=== PATIENT | female | born 2000 | race Caucasian/White ===

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

== ENCOUNTER 2022-10-15 09:52 | Outpatient (REF) | payer MEDICAID, SELFPAY ==
[2022-10-16 03:24] LABS: CT PCR NOT DETECTED (Not Detect.)
[2022-10-16 03:25] LABS: NG PCR NOT DETECTED (Not Detect.)
[2022-10-16 11:35] LABS: BV Int Neg Control Negative (Negative); BV Int Pos Control Positive (Positive)
== END 2022-10-15 09:53 | disposition home or self-care (01) ==
LOC: HO.LNP 09:52
PROVIDERS: PCP Pediatrics; Visit Provider Advanced Practice Midwife
DX: N92.1 Excessive and frequent menstruation with irregular cycle (principal); E66.01 Morbid (severe) obesity due to excess calories; Z68.42 Body mass index [BMI] 45.0-49.9, adult; L68.0 Hirsutism; L65.9 Nonscarring hair loss, unspecified; N63.10 Unspecified lump in the right breast, unspecified quadrant; N63.20 Unspecified lump in the left breast, unspecified quadrant; Z97.5 Presence of (intrauterine) contraceptive device
CPT/HCPCS: 0353U; 81025; 87480; 87510; 87660

== ENCOUNTER 2022-10-23 07:17 | Outpatient (REF) | payer MEDICAID, SELFPAY ==
[2022-10-23 07:59] LABS: Hematocrit 41.6 % (37.0-47.0); Hemoglobin 13.2 g/dl (12.0-16.0); Mean Corpuscular HGB Conc 31.7 g/dl (31.0-35.0); Mean Corpuscular Hemoglobin 27.5 pg (27.0-33.0); Mean Corpuscular Volume 86.7 fL (80.0-98.0); Mean Platelet Volume 8.9 fL (9.4-12.3); Platelet Count 334 X10*3/uL (160-400); Red Cell Distribution Width 13.7 % (11.0-16.0); White Blood Count 7.9 X10*3/uL (4.8-10.8)
[2022-10-23 08:23] LABS: Estimated Average Glucose 114 mg/dL; Hemoglobin A1c % 5.6 %
[2022-10-23 08:50] LABS: Cholesterol 112 mg/dL; Glucose Random 113 mg/dL (60-115); HDL Cholesterol 38 mg/dL; LDL Cholesterol Calculated 60 mg/dl; Triglycerides 70 mg/dL
[2022-10-25 04:14] LABS: Syphilis Screen Nonreactive (Nonreactive)
[2022-10-25 04:24] LABS: HBsAGNum1 0.31 S/CO (0.00-0.99); HIV AB/AG Nonreactive (Nonreactive); HIV Num 1 0.06 S/CO (0.00-0.99); Hepatitis B Surface Antigen Negative (Negative); ~HepC Num1 0.14 S/CO (0.00-0.79); ~Hepatitis C Antibody Nonreactive (Nonreactive)
== END 2022-10-23 07:18 | disposition home or self-care (01) ==
LOC: HO.LAB 07:17
PROVIDERS: Visit Provider Advanced Practice Midwife
DX: N92.1 Excessive and frequent menstruation with irregular cycle (principal); Z11.4 Encounter for screening for human immunodeficiency virus [HIV]; L68.0 Hirsutism; L65.9 Nonscarring hair loss, unspecified; E66.01 Morbid (severe) obesity due to excess calories; Z68.42 Body mass index [BMI] 45.0-49.9, adult; Z97.5 Presence of (intrauterine) contraceptive device
CPT/HCPCS: 36415; 80061; 82947; 83036; 84443; 85027; 86780; 86803; 87340; 87389

== ENCOUNTER 2022-10-25 13:13 | Outpatient (REF) | payer MEDICAID, SELFPAY ==
--- NOTE | ~2022-10-25 | US_ITS ---
EXAMINATION: US DIAGNOSTIC ULTRASOUND BREAST, RIGHT US DIAGNOSTIC ULTRASOUND BREAST, LEFT CLINICAL INFORMATION: 22-year-old with palpable tender mass noted by patient outer left breast for 4-5 months. Patient perceives size possibly increased since 4-5 months ago. On clinical exam, palpable mass also noted on contralateral upper right breast. No prior breast imaging. COMPARISON: None (current study represents initial baseline exam). TECHNIQUE: Ultrasound of both breasts is targeted to the areas of palpable concern. Grayscale imaging and color Doppler are performed without and with harmonics. FINDINGS: Right: There is a macrolobulated hypoechoic the circumscribed mass 12:00 position 9 cm from nipple measuring approximately 1.8 x 1.2 x 1.4 cm. There is scattered internal color flow. Finding most likely represents a fibroadenoma. Left: There is a similar-appearing macrolobulated hypoechoic circumscribed mass at site of clinical concern 4:00 position 10 cm from nipple. The overall dimensions are 4.3 x 1.4 cm. There is scattered internal color flow. It is difficult to confirm that this represents a single lesion or perhaps 2 adjacent lesions. Turning of patient failed to reveal sliding movement between the macrolobulated foci therefore favoring a single lesion of 4.3 cm in greatest dimension. This most likely represents a fibroadenoma. Results are discussed with the patient at time of visit. Management options are discussed with patient. The right-sided lesion could be followed with ultrasound in 6 months. Given the dominant lesion on left of 4.3 cm, surgical consult is recommended. Results and recommendation called to office (AVRIL Andujar) for Maxine Moyer CNM on 10/25/2022. US/US breast LT limited IMPRESSION: Left: Probable fibroadenoma 4:00 position measuring 4.3 cm. Right: Probable fibroadenoma 12:00 position measuring 1.8 cm. ASSESSMENT: BI-RADS 4: Suspicious (subcategory 4A: Low suspicion for malignancy) RECOMMENDATION: Surgical consult This patient's information was entered into a reminder system with a target due date for their next mammogram.
== END 2022-10-25 13:14 | disposition home or self-care (01) ==
LOC: HO.MAMMO 13:13
PROVIDERS: Visit Provider Advanced Practice Midwife
DX: N63.12 Unspecified lump in the right breast, upper inner quadrant (principal); N63.23 Unspecified lump in the left breast, lower outer quadrant
CPT/HCPCS: 76642

== ENCOUNTER → 2022-11-02 14:47 | Outpatient (BNVA) | payer MEDICAID, SELFPAY | PROVIDERS: Referring Provider Advanced Practice Midwife; Visit Provider Surgery | DX: N63.10 Unspecified lump in the right breast, unspecified quadrant (principal); N63.20 Unspecified lump in the left breast, unspecified quadrant | CPT/HCPCS: 99202 ==

== ENCOUNTER 2022-11-17 05:52 | Day surgery (SDC) | payer MEDICAID, SELFPAY ==
[2022-11-11 10:26] VITALS: BMI 44.4
--- NOTE | 2022-11-16 20:00 | MHC.SHP ---
Pre-Procedural Eval Section A Date of Service: 11/17/22 The patient is an INPATIENT: No Changes since office visit: No Cold of Flu in the past 2 weeks, No New Medical Problems, No Changes in Medication and No Patient answered all questions Section B Chief Complaint: Unspecified lump in the right breast, unspecified Allergies: Allergies Allergy/AdvReac Type Severity Reaction Status Date / Time Penicillins [PENICILLINS] Allergy Severe Anaphylaxis Verified 11/11/22 10:19 shellfish derived Allergy Severe Anaphylaxis Verified 11/11/22 10:19 Plan I have reviewed the history and physical and performed a pertinent physical examination on my patient. No changes have occurred unless specified. Time Spent With Patient Time: Total time managing care of this patient today ____ minutes.
[2022-11-17 06:20] VITALS: BP 118/78; PULSE 104; RESP 16; TEMP 36.4; O2SAT 97
[2022-11-17 06:32] LABS: UPreg QC Valid YES; Urine Pregnancy NEGATIVE (NEGATIVE)
[2022-11-17] MEDS: Lactated Ringers 1,000 ML 50 ML IVCONT (06:42)
--- NOTE | 2022-11-17 07:27 | HO.ANESPROP2 ---
[facility] Active Problems Active Problems: All Active Problems (Updated 11/02/22 @ 15:12 by Jose Ortiz MD) Breakthrough bleeding on Nexplanon (Acute) Morbid obesity with BMI of 45.0-49.9, adult (Acute) Well woman exam with routine gynecological exam (Acute) Screen for sexually transmitted diseases (Acute) Hirsutism (Acute) Hair thinning (Acute) control counseling (Acute) Bilateral breast lump (Acute) Past Medical History Medical History Hirsutism Family History Family History Father Hypertension Surgical History Surgical History Hx of knee surgery History of Problems with Anesthesia: No Social History Social History Alcohol intake: never Patient Tobacco Use Status: Never used Tobacco Meds Allergies Allergy/AdvReac Type Severity Reaction Status Date / Time Penicillins [PENICILLINS] Allergy Severe Anaphylaxis Verified 11/11/22 10:19 shellfish derived Allergy Severe Anaphylaxis Verified 11/11/22 10:19 Active Medications: Current Medications Lactated Ringer's (Lr) 1,000 mls @ 50 mls/hr IVCONT .Q20H CANDIDO Last Admin: 11/17/22 06:42 Dose: 50 mls/hr Exam Exam Date and Time: November 17, 2022 0727 Height,Weight and Vital Signs: Height 5 ft 9 in Weight 136.645 kg Last Vital Signs Temp 97.6 F 11/17/22 06:20 Pulse 104 H 11/17/22 06:20 Resp 16 11/17/22 06:20 BP 118/78 11/17/22 06:20 Pulse Ox 97 11/17/22 06:20 O2 Del Method Room Air 11/17/22 06:20 Pertinent Lab Results Pertinent Lab Results: Laboratory Tests 11/17/22 06:14 Urine Test NEGATIVE Airway Mallampati Class: II TM Dist: >3cm Neck ROM: Full Loose/Missing/Broken Teeth: No Heart: RRR Lungs: C Assessment and Plan Assessment Anesthesia Assessment: Anesthesia Plan Discussed and Chart Reviewed Final Anesthetic Review History of Problems with Anesthesia: No NPO: Yes ASA Class: III Final Preanesthetic Review: Meds/Allgs Chart Reviewed, Consent Obtained/Reviewed and Anes Risks/Benef Reviewed Patient Risk: Intermediate Procedure Risk: Low Anesthetic Plan Anesthetic Plan: GA Disposition: Standard PACU
--- NOTE | 2022-11-17 08:10 | W.PM.OPN ---
Operative Note Operative Note Date of Service: 11/17/22 Narrative: Preoperative diagnosis: [] left lower outer quadrant breast mass Postop diagnosis: [] same Procedure [] excision left breast mass Surgeon: [] [employer] Assistant: [] Archana cazares Type of Anesthesia: [] general Indication for surgery: [] symptomatic enlarging left lower outer quadrant breast mass Findings: [] final specimen measured approximately 7 x 6 cm consistent of a multi - lobular mass grossly consistent with a fibroadenoma Patient is brought to the operating room, placed on the operating table in supine position, and after an adequate level of general anesthesia was induced, the left breast was prepped and draped in usual sterile fashion. Using a curvilinear incision in the lower outer quadrant over the mass in question, this carried down through skin and subcutaneous tissue. Superior and inferior skin flaps were developed using electro Bovie. Mass was identified and a circumferential excision was performed using electro Bovie. Specimen was sent to pathology for final specimentation. Wound was irrigated, secured hemostasis, and closed using interrupted inverted deep dermal 3-0 Vicryl sutures followed by running subcuticular 4-0 Vicryl suture. Steri-Strips and sterile dressings were applied. Wound was infiltrated with 0.5% Marcaine a completion. Sponge, needle, and instrument counts were reported to be correct. Patient tolerated the procedure well and emerged from anesthesia in stable condition. EBL minimal
[2022-11-17 08:17] VITALS: BP 128/79; PULSE 102; RESP 16; TEMP 36.4; O2SAT 96
[2022-11-17 08:22] VITALS: BP 122/57; PULSE 94; RESP 16; O2SAT 96
[2022-11-17 08:27] VITALS: BP 114/66; PULSE 92; RESP 16; O2SAT 97
[2022-11-17 08:32] VITALS: BP 107/65; PULSE 76; RESP 16; O2SAT 97
[2022-11-17 08:48] VITALS: BP 119/72; PULSE 75; RESP 16; TEMP 36.3; O2SAT 99
== END 2022-11-17 09:22 | disposition home or self-care (01) ==
PROVIDERS: Anesthesiology; Visit Provider Surgery
PROC: (CPT 19120; principal; 2022-11-17 07:30)
DX: D24.2 Benign neoplasm of left breast (principal); E66.01 Morbid (severe) obesity due to excess calories; Z68.41 Body mass index [BMI] 40.0-44.9, adult; L68.0 Hirsutism; Z79.899 Other long term (current) drug therapy; Z88.0 Allergy status to penicillin
CPT/HCPCS: 19120; 81025; 88305; 88307; J1100; J2250; J2405; J3010

== ENCOUNTER → 2022-11-24 10:06 | Outpatient (BNVA) | payer MEDICAID, SELFPAY | PROVIDERS: Visit Provider Surgery ==

== ENCOUNTER 2023-05-04 09:19 | Outpatient (REF) | payer MEDICAID, SELFPAY ==
--- NOTE | ~2023-05-04 | XR_ITS ---
EXAMINATION: XR CHEST CLINICAL INFORMATION: Chest pain for 3 days COMPARISON: None available. TECHNIQUE: 2 views of the chest were obtained. FINDINGS: Cardiac silhouette is normal in size. The lungs are well aerated. There is no lobar consolidation. No pleural effusion or pneumothorax. Minimal degenerative changes of the spine. XR/XR chest 2V IMPRESSION: No acute pulmonary pathology.
[2023-05-04 19:01] LABS: Influenza A PCR NEGATIVE (Negative); Influenza B PCR NEGATIVE (Negative); Resp Syncy Virus RNA Qual PCR NEGATIVE (Negative); SARS COV2 PCR INHOUSE NEGATIVE (Negative)
== END 2023-05-04 09:20 | disposition home or self-care (01) ==
LOC: HO.HHCX 09:19
PROVIDERS: Visit Provider Emergency Medicine
DX: R07.9 Chest pain, unspecified (principal); Z20.822 Contact with and (suspected) exposure to COVID-19; R68.89 Other general symptoms and signs
CPT/HCPCS: 0241U; 71046

== ENCOUNTER 2023-07-30 01:23 | Emergency (ER) | payer MEDICAID, SELFPAY ==
--- NOTE | 2023-07-30 | ECG_ITS ---
Test Reason : CHRST PAIN Blood Pressure : / mmHG Vent. Rate : 076 BPM Atrial Rate : 076 BPM P-R Int : 132 ms QRS Dur : 086 ms QT Int : 396 ms P-R-T Axes : 035 014 013 degrees QTc Int : 445 ms Normal sinus rhythm Normal ECG No previous ECGs available Referred By: Generic ED Physician Electronically Signed By:Edilberto Lenz
--- NOTE | ~2023-07-30 | CT_ITS ---
EXAMINATION: CT ABDOMEN AND PELVIS WITH CONTRAST CLINICAL INFORMATION: Epigastric pain COMPARISON: None available. TECHNIQUE: Multidetector volumetric images were obtained from the superior aspect of the liver through the pubic symphysis following administration 100 mL of Omnipaque 350 intravenous contrast. Sagittal and coronal reformatted images were obtained on the technologist's workstation. Oral contrast: No This CT examination was performed using dose optimization techniques as appropriate, variously including the following: *Automated exposure control *Adjustment of mA and/or kV according to patient size (this includes techniques or standardized protocols for targeted exams where dose is matched to indication/reason for exam; i.e. extremities or head) *Use of iterative reconstruction technique DLP: 1412 mGy-cm FINDINGS: LUNG BASES: The visualized lung bases are unremarkable. LIVER, GALLBLADDER, AND BILIARY TREE: The liver is normal in size, shape, and attenuation. No focal hepatic lesion or biliary ductal dilatation is present. Mild periportal edema. The gallbladder is unremarkable with no evidence of radiopaque gallstones, gallbladder wall thickening, or obvious pericholecystic inflammatory changes. Small phrygian cap versus focal adenomyomatosis at the gallbladder fundus. PANCREAS: Unremarkable. SPLEEN: Unremarkable. ADRENAL GLANDS: Unremarkable. KIDNEYS AND URETERS: The kidneys are normal in size, shape, and attenuation. No hydronephrosis, hydroureter, or calculi seen. No perinephric stranding. BLADDER: Unremarkable. GASTROINTESTINAL TRACT: The small and large bowel are unremarkable. The appendix is unremarkable. ABDOMINAL WALL: No significant hernia is appreciated. LYMPH NODES: Normal. VASCULAR: Unremarkable. PELVIC VISCERA: Uterus and adnexa unremarkable. OSSEOUS STRUCTURES: No acute or suspicious osseous abnormalities. CT/CT abdomen pelvis w IV con IMPRESSION: * No acute findings within the abdomen or pelvis to explain the patient's symptomatology. * Nonspecific mild periportal edema. This is often related to aggressive hydration, although can also be seen in the setting of hepatitis. Correlate with LFTs.
[2023-07-30 01:24] VITALS: BP 146/67; PULSE 95; RESP 18; TEMP 36.4; O2SAT 98; BMI 44.3
[2023-07-30 01:57] LABS: MANUAL DIFF FLAG NO
[2023-07-30 02:05] LABS: Basophils Absolute Auto 0.1 X10*3/uL (0.0-0.2); Basophils Percent Auto 0.4 % (0-2); Eosinophils Absolute Auto 0.1 X10*3/uL (0.0-0.4); Eosinophils Percent Auto 1.1 % (0-4); Hematocrit 38.5 % (37.0-47.0); Hemoglobin 12.7 g/dl (12.0-16.0); Imm Gran Abs Auto 0.07 X10*3/uL (0.00-0.03); Imm Gran Pct Auto 0.5 % (0.0-0.4); Lymphocytes Absolute Auto 3.6 X10*3/uL (1.2-4.9); Lymphocytes Percent Auto 27.8 % (20-40); Mean Corpuscular Volume 84.8 fL (80.0-98.0); Mean Platelet Volume 8.8 fL (9.4-12.3); Monocytes Absolute Auto 0.8 X10*3/uL (0.1-1.2); Monocytes Percent Auto 6.3 % (2-11); Neutrophils Absolute Auto 8.4 x10*3/uL (2.0-8.3); Neutrophils Percent Auto 63.9 % (45-73); Platelet Count 363 X10*3/uL (160-400); Red Blood Count 4.54 X10*6/uL (4.20-5.50); Red Cell Distribution Width 13.3 % (11.0-16.0); White Blood Count 13.1 X10*3/uL (4.8-10.8)
[2023-07-30 02:16] LABS: Alanine Aminotransferase 21 U/L (0-31); Albumin Level 3.9 g/dL (3.5-5.0); Alkaline Phosphatase 105 U/L (39-117); Anion Gap 12 (12-20); Aspartate Amino Transferase 30 U/L (5-31); Bilirubin Direct 0.2 mg/dL (0.0-0.5); Bilirubin Total 0.4 mg/dL (0.0-1.0); Blood Urea Nitrogen 12 mg/dL (9-16); Calcium 8.8 mg/dL (8.4-10.2); Carbon Dioxide 22 mmol/L (22-29); Chloride 107 mmol/L (96-108); Creatinine Clr Calc Pharmacy 194.5; Estimated Glomerular Filt Rate > 60; Glucose Random 178 mg/dL (60-115); Lipase 29 U/L (8-78); Potassium 3.8 mmol/L (3.3-5.1); Sodium 137 mmol/L (135-145); Total Protein 6.8 g/dL (6.5-8.0)
[2023-07-30 02:23] LABS: Troponin-I High Sensitivity < 2.7 ng/L (<3.5-17.0)
--- NOTE | 2023-07-30 02:44 | ED_ITS ---
HPI - Abdominal Pain General Chief Complaint: Abdominal Pain Stated Complaint: abd pain, n/v Time Seen by Provider: 07/30/23 02:01 History of Present Illness HPI narrative: Patient is a 23-year-old female presents today with having abdominal pain. The abdominal pain is in the epigastric area. It happened after eating some chicken McNuggets from [employer]. It is not associated with any chest pain diaphoresis. It does radiates to the back. It lasted for approximately 4-5 hours. Has a history of gastritis in the past. There is no bowel urinary incontinence. There is normal bowel movements. There is no chest pain there is no shortness of breath there is no diaphoresis. Patient is from home. Never had any abdominal surgery in the past. She is larger in size. She weighs approximately 136 kg. Related Data Previous Rx's Medication Instructions Recorded albuterol sulfate 90 mcg/actuation 2 puff inhalation Q4-6H PRN 06/04/21 aerosol inhaler (ProAir HFA) shortness of breath or wheezing #8.5 grams docusate sodium 100 mg capsule 100 mg PO BID PRN constipation #30 11/17/22 (Colace) caps oxycodone 5 mg tablet 5 mg PO Q4H PRN pain (scale score 11/17/22 7-10) #20 tabs pantoprazole 40 mg tablet,delayed 40 mg PO DAILY #14 tabs 07/30/23 release (Protonix) Allergies Allergy/AdvReac Type Severity Reaction Status Date / Time Penicillins [PENICILLINS] Allergy Severe Anaphylaxis Verified 07/30/23 01:27 shellfish derived Allergy Severe Anaphylaxis Verified 07/30/23 01:27 Review of Systems Review of Systems Positive abdominal pain in the epigastric area Yes all other systems are reviewed and are negative [facility] Past Medical History Attestation statement: The following information was validated with the patient. Medical History Hirsutism Surgical History History of breast lump/mass excision (11/17/22) Hx of knee surgery Family History Family History Father Hypertension Social History Social History Alcohol intake: current Alcohol intake frequency: a few times a week Patient Tobacco Use Status: Never used Tobacco Smoked in Last 30 Days: No Use of substances other than those prescribed or required for medical reasons: No Advance Directives: No Advance Directives Information Provided: No Patient : No Physical Exam ED Vital Signs: Vital Signs - 24 hr 07/30/23 01:24 07/30/23 03:00 07/30/23 04:35 Temperature 97.6 F 98.4 F 98.6 F Pulse Rate 95 94 81 Respiratory Rate 18 18 18 Blood Pressure 146/67 H 115/61 116/52 L Pulse Oximetry 98 98 98 Oxygen Delivery Method Room Air Room Air BMI result Body Mass Index 44.3 Appearance: Alert. Oriented X3. No acute distress. Eyes: Pupils equal, round and reactive to light. ENT: Pharynx normal. Neck: Normal inspection. Neck supple. No lymph nodes noted. No crepitus CVS: Normal heart rate and rhythm. Pulses normal. Normal S1 and S2 Respiratory: No respiratory distress. Breath sounds normal. No Wheezing. No rales Abdomen: Soft and nontender. No rigidity. No distention. good BS x4 Skin: Skin warm and dry. Normal skin color. Normal skin turgor. Extremities: No lower extremity edema. Neurovascular intact to all extremities. No Lacerations. No Rash Neuro: Oriented X 3. No motor deficit. No sensory deficit. Moving all extermities. No slurred speech Medical Decision Making Medical Decision Making MDM Narrative: Well-appearing no acute distress. Patient had abdominal pain in the epigastric area. My exam showed a soft nonacute abdomen. Patient's LFTs are normal. Lipase is normal. There is no evidence for pancreatitis. Patient's test is negative. No evidence for related issues. There is no chest pain there is no diaphoresis history not consistent with ACS. Currently awaiting GI cocktail and CT scan of the abdomen. CT scan of the abdomen showed no acute findings. LFTs are normal. Patient's lipase normal no evidence for biliary disease. More likely gastritis. Will start patient on PPI. Have patient follow-up on an outpatient basis. Differential Diagnosis Differential Diagnoses: The differential diagnosis associated with the presentation includes Pancreatitis, gallstone pancreatitis, gastritis, obstruction, abscess, ACS Admission/Observation Consideration of admission/observation: Escalation of care including admission/observation considered Patient well-appearing no need for admission Lab Data MDM Lab Attestation statement: I reviewed the patient's lab results. 07/30/23 01:52 07/30/23 01:52 Labs: Lab Results 07/30/23 07/30/23 Range/Units 01:52 02:42 WBC 13.1 H (4.8-10.8) X10*3/uL RBC 4.54 (4.20-5.50) X10*6/uL Hgb 12.7 (12.0-16.0) g/dl Hct 38.5 (37.0-47.0) % MCV 84.8 (80.0-98.0) fL MCH 28.0 (27.0-33.0) pg MCHC 33.0 (31.0-35.0) g/dl RDW 13.3 (11.0-16.0) % Plt Count 363 (160-400) X10*3/uL MPV 8.8 L (9.4-12.3) fL Immature Gran % (Auto) 0.5 H (0.0-0.4) % Neut % (Auto) 63.9 (45-73) % Lymph % (Auto) 27.8 (20-40) % [place] % (Auto) 6.3 (2-11) % Eos % (Auto) 1.1 (0-4) % Baso % (Auto) 0.4 (0-2) % Lymph # (Auto) 3.6 (1.2-4.9) X10*3/uL [place] # (Auto) 0.8 (0.1-1.2) X10*3/uL Eos # (Auto) 0.1 (0.0-0.4) X10*3/uL Baso # (Auto) 0.1 (0.0-0.2) X10*3/uL Abs Immat Gran (auto) 0.07 H (0.00-0.03) X10*3/uL Absolute Neuts (auto) 8.4 H (2.0-8.3) x10*3/uL Absolute Nucleated RBC 0.000 (0.0-0.012) X10*3/uL Nucleated RBC % (auto) 0.0 (0.0-0.2) /100WBC Sodium 137 (135-145) mmol/L Potassium 3.8 (3.3-5.1) mmol/L Chloride 107 (96-108) mmol/L Carbon Dioxide 22 (22-29) mmol/L Anion Gap 12 (12-20) BUN 12 (9-16) mg/dL Creatinine 0.68 (0.5-1.4) mg/dL Estim Creat Clear Calc 194.5 Estimated GFR > 60 Random Glucose 178 H (60-115) mg/dL Calcium 8.8 (8.4-10.2) mg/dL Total Bilirubin 0.4 (0.0-1.0) mg/dL Direct Bilirubin 0.2 (0.0-0.5) mg/dL AST 30 (5-31) U/L ALT 21 (0-31) U/L Alkaline Phosphatase 105 (39-117) U/L Troponin I High Sens < 2.7 (<3.5-17.0) ng/L Total Protein 6.8 (6.5-8.0) g/dL Albumin 3.9 (3.5-5.0) g/dL Lipase 29 (8-78) U/L Urine Color Yellow Urine Appearance Clear Urine pH 5.5 (5.0-9.0) Ur Specific [place] 1.025 (1.005-1.025) Urine Protein Trace (Neg-Trace) mg/dL Urine Glucose (UA) Negative (Negative) mg/dL Urine Ketones Negative (Negative) mg/dL Urine Blood Large (3+) H (Negative) Urine Nitrite Negative (Negative) Ur Leukocyte Esterase Negative (Negative) Urine RBC >20 H (0-2) /HPF Urine WBC 0-5 (0-5) /HPF Ur Squamous Epith Cells 3-5 (0-2) /HPF Urine Bacteria None Seen (None Seen) Hyaline Casts 0-2 (0-2) /LPF Urine Test NEGATIVE (NEGATIVE) Independent Interpretation I performed an independent interpretation of an: EKG (Sinus heart rate is 80 [place] QRS QTC within normal limits is no acute ST segment elevation noted.) Independent Historian Clinical information obtained from an independent historian. History obtained from or confirmed by: Spouse Medications Administered Discontinued Medications Generic Name Dose Route Start Last Admin Trade Name Freq PRN Reason Stop Dose Admin Al Hydroxide/Mg Hydroxide 30 ml 07/30/23 02:35 07/30/23 03:07 Magnesium Hydrox/Alum Hydrox 30 Ml Oral.Susp PO 07/30/23 02:36 30 ml ONCE ONE Administration Belladonna Alkaloids/Phenobarbital 10 ml 07/30/23 02:35 07/30/23 03:07 Phenobarb/Hyoscy/Atropine/Scop 10 Ml Elixir PO 07/30/23 02:36 10 ml ONCE ONE Administration Iohexol 100 ml 07/30/23 03:34 07/30/23 03:35 Iohexol 350 Mg/Ml 100 Ml Infus..Btl IV 07/30/23 03:35 100 ml ONCE ONE Administration Lidocaine HCl 15 ml 07/30/23 02:35 07/30/23 03:07 Lidocaine Hcl Viscous 2 % 15 Ml Solution MUCOUS MEM 07/30/23 02:36 15 ml ONCE ONE Administration Discharge Plan Discharge Clinical Impression: Gastritis Patient Disposition: Home, Self-Care Instructions: Gastritis (DC) Prescriptions: New pantoprazole [Protonix] 40 mg tablet,delayed release (DR/EC) 40 mg PO DAILY Qty: 14 0RF No Action albuterol sulfate [ProAir HFA] 90 mcg/actuation HFA aerosol inhaler 2 puff inhalation Q4-6H PRN (Reason: shortness of breath or wheezing) Qty: 8.5 0RF oxycodone 5 mg tablet 5 mg PO Q4H PRN (Reason: pain (scale score 7-10)) Qty: 20 0RF Rx Instructions: Partial Fill upon patient request. docusate sodium [Colace] 100 mg capsule 100 mg PO BID PRN (Reason: constipation) Qty: 30 0RF Referrals: [facility] [Primary Care Provider] - 08/02/23
[2023-07-30 02:53] LABS: Appearance Urine Clear; Color Urine Yellow; Glucose Urine UA Negative (Negative); Leukocyte Esterase Urine Negative (Negative); Nitrite Urine Negative (Negative); PH 5.5 (5.0-9.0); Specific Gravity - Urine 1.025 (1.005-1.025); UMIC TRIGGER UACC YES; Urine Blood Large (3+) (Negative); Urine Ketones Negative (Negative); Urine Protein Trace mg/dL (Neg-Trace)
[2023-07-30 02:54] LABS: UPreg QC Valid YES; Urine Pregnancy NEGATIVE (NEGATIVE)
[2023-07-30 03:00] VITALS: BP 115/61; PULSE 94; RESP 18; TEMP 36.9; O2SAT 98
[2023-07-30 03:07] LABS: Bacteria Urine None Seen (None Seen); Hyaline Casts Urine 0-2 /LPF (0-2); RBC Urine >20 /HPF (0-2); WBC Urine 0-5 /HPF (0-5)
[2023-07-30] MEDS: Magnesium Hydrox/Alum Hydrox 30 ML ORAL.SUSP PO (03:07)
[2023-07-30] MEDS: Lidocaine HCl Viscous 2 % 15 ML SOLUTION MUCOUS MEM (03:07)
[2023-07-30] MEDS: PHENobarb/Hyoscy/Atropine/Scop 10 ML ELIXIR PO (03:07)
--- NOTE | 2023-07-30 03:20 | PC.NURSE ---
pt c/o 01/22 abdominal pain. Medicated per OCT, #20 IV placed in L-AC. urine sample sent to lab.
[2023-07-30] MEDS: iohexoL 350 MG/ML 100 ML INFUS..BTL IV (03:35)
[2023-07-30 04:35] VITALS: BP 116/52; PULSE 81; RESP 18; TEMP 37; O2SAT 98
--- NOTE | 2023-07-30 04:36 | MHC.EDTECH ---
Hourly rounds and vitals completed,patient resting at this time family at bedside and call chavez within reach
== END 2023-07-30 05:10 | disposition home or self-care (01) ==
PROVIDERS: Emergency Provider Emergency Medicine Emergency Medical Services
DX: K29.70 Gastritis, unspecified, without bleeding (principal); E66.9 Obesity, unspecified; Z68.41 Body mass index [BMI] 40.0-44.9, adult
CPT/HCPCS: 36415; 74177; 80053; 81001; 81025; 82248; 83690; 84484; 85025; 93005; 99284; Q9967

== ENCOUNTER → 2023-07-30 01:36 | Outpatient (BNV) | payer MEDICAID, SELFPAY | PROVIDERS: Emergency Provider Emergency Medicine Emergency Medical Services; Visit Provider Internal Medicine Cardiovascular Disease | DX: R07.9 Chest pain, unspecified (principal) | CPT/HCPCS: 93010 ==

== ENCOUNTER 2023-08-25 19:10 | Outpatient (REF) | payer MEDICAID, SELFPAY ==
[2023-08-26 09:24] LABS: CT PCR NOT DETECTED (Not Detect.); NG PCR NOT DETECTED (Not Detect.)
== END 2023-08-25 19:11 | disposition home or self-care (01) ==
LOC: HO.HHCLNP 19:10
PROVIDERS: Visit Provider Advanced Practice Midwife
DX: Z11.3 Encounter for screening for infections with a predominantly sexual mode of transmission (principal)
CPT/HCPCS: 0353U

== ENCOUNTER 2023-10-14 01:38 | Emergency (ER) | payer MEDICAID, SELFPAY ==
[2023-10-14 01:40] VITALS: BP 151/91; PULSE 98; RESP 17; TEMP 36.7; O2SAT 99; BMI 44.8
[2023-10-14 03:27] LABS: MANUAL DIFF FLAG NO
[2023-10-14 03:32] LABS: Basophils Absolute Auto 0.1 X10*3/uL (0.0-0.2); Basophils Percent Auto 0.5 % (0-2); Eosinophils Percent Auto 0.4 % (0-4); Hematocrit 41.2 % (37.0-47.0); Hemoglobin 13.5 g/dl (12.0-16.0); Imm Gran Abs Auto 0.04 X10*3/uL (0.00-0.03); Imm Gran Pct Auto 0.4 % (0.0-0.4); Lymphocytes Absolute Auto 1.6 X10*3/uL (1.2-4.9); Lymphocytes Percent Auto 14.8 % (20-40); Mean Corpuscular HGB Conc 32.8 g/dl (31.0-35.0); Mean Corpuscular Volume 85.5 fL (80.0-98.0); Mean Platelet Volume 8.6 fL (9.4-12.3); Monocytes Absolute Auto 0.5 X10*3/uL (0.1-1.2); Monocytes Percent Auto 4.4 % (2-11); Neutrophils Absolute Auto 8.4 x10*3/uL (2.0-8.3); Neutrophils Percent Auto 79.5 % (45-73); Platelet Count 343 X10*3/uL (160-400); Red Blood Count 4.82 X10*6/uL (4.20-5.50); Red Cell Distribution Width 13.8 % (11.0-16.0); White Blood Count 10.5 X10*3/uL (4.8-10.8)
[2023-10-14 04:09] LABS: Influenza A PCR NEGATIVE (Negative); Influenza B PCR NEGATIVE (Negative); Resp Syncy Virus RNA Qual PCR NEGATIVE (Negative); SARS COV2 PCR INHOUSE NEGATIVE (Negative)
[2023-10-14 04:31] LABS: Appearance Urine Turbid; Color Urine Yellow; Glucose Urine UA Negative (Negative); Leukocyte Esterase Urine Negative (Negative); Nitrite Urine Negative (Negative); PH >= 9.0 (5.0-9.0); UMIC TRIGGER UACC YES; Urine Blood Small (1+) (Negative); Urine Ketones Negative (Negative); Urine Protein Trace mg/dL (Neg-Trace)
[2023-10-14 04:34] LABS: Bacteria Urine Trace (None Seen); Hyaline Casts Urine 0-2 /LPF (0-2); WBC Urine 0-5 /HPF (0-5)
[2023-10-14 04:47] LABS: Alanine Aminotransferase 19 U/L (0-31); Albumin Level 4.2 g/dL (3.5-5.0); Alkaline Phosphatase 101 U/L (39-117); Anion Gap 13 (12-20); Aspartate Amino Transferase 11 U/L (5-31); Bilirubin Total 0.3 mg/dL (0.0-1.0); Blood Urea Nitrogen 14 mg/dL (9-16); Calcium 9.2 mg/dL (8.4-10.2); Carbon Dioxide 23 mmol/L (22-29); Chloride 107 mmol/L (96-108); Creatinine Clr Calc Pharmacy 201.6; Estimated Glomerular Filt Rate > 60; Glucose Random 137 mg/dL (60-115); Lipase 34 U/L (8-78); Potassium 4.2 mmol/L (3.3-5.1); Sodium 139 mmol/L (135-145); Total Protein 7.3 g/dL (6.5-8.0)
[2023-10-14 04:55] LABS: HCG Quantitative < 2 mIU/mL
[2023-10-14 05:32] VITALS: BP 144/84; PULSE 80; RESP 17; TEMP 36.4; O2SAT 97
[2023-10-14 05:54] VITALS: BP 119/52; PULSE 87; RESP 17; TEMP 36.8; O2SAT 98
--- NOTE | 2023-10-14 07:05 | ED_ITS ---
HPI - Abdominal Pain General Chief Complaint: Abdominal Pain Stated Complaint: stomach pain Time Seen by Provider: 10/14/23 06:41 Source: patient Mode of arrival: ambulatory Limitations: no limitations History of Present Illness HPI narrative: This is a 23-year-old female history of obesity, gastritis, GERD, hirsutism, fibroadenoma of the breast presenting to the emergency department with complaints of epigastric burning pain since last night. She tells me it feels ascitic , she tells me she was prescribed pantoprazole by her primary care provider which she has been taking intermittently however not regularly. She reports the pain is strictly a burning pain and does not radiate. Reports 6/10 pain. At times the burning sensation makes her nauseous and she feels it in her mouth. Patient reports she had a few episodes of vomiting last night. Certain foods make it worse such as greasy and spicy foods. Patient reports last period was 10/01/2023 regular menses. Denies chest pain, shortness of breath, fevers, chills, hematemesis, difficulties with urination, changes in bowel habits, headache, vision changes, recent sick contacts. Related Data Previous Rx's Medication Instructions Recorded albuterol sulfate 90 mcg/actuation 2 puff inhalation Q4-6H PRN 06/04/21 aerosol inhaler (ProAir HFA) shortness of breath or wheezing #8.5 grams docusate sodium 100 mg capsule 100 mg PO BID PRN constipation #30 11/17/22 (Colace) caps oxycodone 5 mg tablet 5 mg PO Q4H PRN pain (scale score 11/17/22 7-10) #20 tabs pantoprazole 40 mg tablet,delayed 40 mg PO DAILY #14 tabs 07/30/23 release (Protonix) aluminum-mag hydroxide-simethicone 5 ml PO 5XD PRN dyspepsia #355 mL 10/14/23 200 mg-200 mg-20 mg/5 mL oral susp (Maalox Advanced) Allergies Allergy/AdvReac Type Severity Reaction Status Date / Time Penicillins [PENICILLINS] Allergy Severe Anaphylaxis Verified 10/14/23 01:39 shellfish derived Allergy Severe Anaphylaxis Verified 10/14/23 01:39 Review of Systems Review of Systems Yes all other systems are reviewed and are negative PMFSH Past Medical History Attestation statement: The following information was validated with the patient. Source: old records reviewed and nursing notes reviewed Medical History Hirsutism Surgical History History of breast lump/mass excision (11/17/22) Hx of knee surgery Family History Family History Father Hypertension Social History Social History Alcohol intake: never Patient Tobacco Use Status: Never used Tobacco Smoked in Last 30 Days: No Use of substances other than those prescribed or required for medical reasons: No Advance Directives: No Advance Directives Information Provided: No Patient : No Physical Exam ED Vital Signs: Vital Signs - 24 hr 10/14/23 01:40 10/14/23 05:32 10/14/23 05:54 Temperature 98.1 F 97.5 F 98.2 F Pulse Rate 98 80 87 Respiratory Rate 17 17 17 Blood Pressure 151/91 H 144/84 H 119/52 L Pulse Oximetry 99 97 98 Oxygen Delivery Method Room Air Room Air Room Air 10/14/23 07:13 Temperature 98.1 F Pulse Rate 67 Respiratory Rate 18 Blood Pressure 127/64 Pulse Oximetry 98 Oxygen Delivery Method Room Air BMI result Body Mass Index 44.8 vss Appearance: Alert.? Oriented X3.? No acute distress.? Head: Normocephalic, atraumatic, no step-offs or deformities Eyes: Pupils equal, round and reactive to light.? CVS: Normal heart rate and rhythm.? Pulses normal.? Respiratory: No respiratory distress.? Breath sounds normal.? Abdomen: Soft and nontender.? Normoactive bowel sounds throughout. Negative Rovsing, McBurney's sign. Negative Rothman's. No discomfort with palpation of epigastric region. Skin: Skin warm and dry.? Normal skin color.? Normal skin turgor.? Extremities: No lower extremity edema.? No calf ttp. 5/5 strength to bilateral upper and lower extremities Back: No midline tenderness, no C-spine tenderness, full range of motion, no CVA tenderness bilaterally Neuro: Oriented X 3.? No motor deficit.? No sensory deficit. CN 2-12 intact Course Reevaluation(s) Reevaluation #1: CBC within normal limits. Chemistry unremarkable. Beta hCG negative. UA with slight blood it appears as though patient always has blood in her urine. No leukocytes or nitrates. Trace bacteria however I suspect this is contaminated secondary to high level of epithelial cells. Patient without urinary symptoms will not treat for UTI. Normal labs reassuring, no indication for CT scan. Will give her GI cocktail and reassess. Time: 07:35 Reevaluation #2: Patient feeling a lot better. Will do p.o. challenge as long as patient can tolerate p.o. patient to be discharged. She is asking if she can go home on similar meds as this provided her symptomatic relief. Time: 08:00 Reevaluation #3: Patient tolerating p.o. Medical Decision Making Medical Decision Making [facility] Narrative: 23-year-old female presents with complaints of epigastric pain, burning sensation in her stomach. Physical exam significant for Soft and nontender.? Normoactive bowel sounds throughout. Negative Rovsing, McBurney's sign. Negative Rothman's. No discomfort with palpation of epigastric region. History and physical exam concerning for GERD versus gastritis versus gastric ulcer. Unlikely appendicitis, acute cholecystitis, pancreatitis, obstruction, acute abdomen, diverticulitis. Other differentials include H pylori. Plan at this time will give a GI cocktail. Labs were ordered from previous provider/nursing Differential Diagnosis Differential Diagnoses: The differential diagnosis associated with the presentation includes History and physical exam concerning for GERD versus gastritis versus gastric ulcer. Unlikely appendicitis, acute cholecystitis, pancreatitis, obstruction, acute abdomen, diverticulitis. Other differentials include H pylori. Admission/Observation Consideration of admission/observation: Escalation of care including admission/observation considered Unlikely Lab Data [facility] Lab Attestation statement: I reviewed the patient's lab results. 10/14/23 03:23 10/14/23 04:21 Labs: Lab Results 10/14/23 10/14/23 Range/Units 03:23 04:21 WBC 10.5 (4.8-10.8) X10*3/uL RBC 4.82 (4.20-5.50) X10*6/uL Hgb 13.5 (12.0-16.0) g/dl Hct 41.2 (37.0-47.0) % MCV 85.5 (80.0-98.0) fL MCH 28.0 (27.0-33.0) pg MCHC 32.8 (31.0-35.0) g/dl RDW 13.8 (11.0-16.0) % Plt Count 343 (160-400) X10*3/uL MPV 8.6 L (9.4-12.3) fL Immature Gran % (Auto) 0.4 (0.0-0.4) % Neut % (Auto) 79.5 H (45-73) % Lymph % (Auto) 14.8 L (20-40) % Mobile % (Auto) 4.4 (2-11) % Eos % (Auto) 0.4 (0-4) % Baso % (Auto) 0.5 (0-2) % Lymph # (Auto) 1.6 (1.2-4.9) X10*3/uL Mobile # (Auto) 0.5 (0.1-1.2) X10*3/uL Eos # (Auto) 0.0 (0.0-0.4) X10*3/uL Baso # (Auto) 0.1 (0.0-0.2) X10*3/uL Abs Immat Gran (auto) 0.04 H (0.00-0.03) X10*3/uL Absolute Neuts (auto) 8.4 H (2.0-8.3) x10*3/uL Absolute Nucleated RBC 0.000 (0.0-0.012) X10*3/uL Nucleated RBC % (auto) 0.0 (0.0-0.2) /100WBC Sodium 139 (135-145) mmol/L Potassium 4.2 (3.3-5.1) mmol/L Chloride 107 (96-108) mmol/L Carbon Dioxide 23 (22-29) mmol/L Anion Gap 13 (12-20) BUN 14 (9-16) mg/dL Creatinine 0.66 (0.5-1.4) mg/dL Estim Creat Clear Calc 201.6 Estimated GFR > 60 Random Glucose 137 H (60-115) mg/dL Calcium 9.2 (8.4-10.2) mg/dL Total Bilirubin 0.3 (0.0-1.0) mg/dL AST 11 (5-31) U/L ALT 19 (0-31) U/L Alkaline Phosphatase 101 (39-117) U/L Total Protein 7.3 (6.5-8.0) g/dL Albumin 4.2 (3.5-5.0) g/dL Lipase 34 (8-78) U/L Beta HCG, Quant < 2 mIU/mL Urine Color Yellow Urine Appearance Turbid Urine pH >= 9.0 (5.0-9.0) Ur Specific Butler 1.020 (1.005-1.025) Urine Protein Trace (Neg-Trace) mg/dL Urine Glucose (UA) Negative (Negative) mg/dL Urine Ketones Negative (Negative) mg/dL Urine Blood Small (1+) H (Negative) Urine Nitrite Negative (Negative) Ur Leukocyte Esterase Negative (Negative) Urine RBC 11-20 H (0-2) /HPF Urine WBC 0-5 (0-5) /HPF Ur Squamous Epith Cells 11-20 (0-2) /HPF Urine Bacteria Trace (None Seen) Hyaline Casts 0-2 (0-2) /LPF Influenza Type A (PCR) NEGATIVE (Negative) Influenza Type B (PCR) NEGATIVE (Negative) RSV RNA Qual (PCR) NEGATIVE (Negative) SARS-CoV-2 RNA (RT-PCR) NEGATIVE (Negative) Independent Historian Clinical information obtained from an independent historian. History obtained from or confirmed by: Other (Significant) External Record Review External record reviewed: Inpatient record, Office record, Outpatient record, Prior outpatient labs, Prior outpatient radiology, Primary care record and Outside ED record Tests considered The following testing was considered but not selected: Considered CT abdomen and pelvis with contrast however I do not suspect this is acute abdomen or appendicitis. No abdominal tenderness on palpation, normal labs, no fever tachycardia unlikely that this is an intra-abdominal etiology. More likely gastritis versus GERD. Prescription Management I considered prescription management with: Other (Maalox) Medications Administered Discontinued Medications Generic Name Dose Route Start Last Admin Trade Name Freq PRN Reason Stop Dose Admin Al Hydroxide/Mg Hydroxide 30 ml 10/14/23 06:48 10/14/23 07:23 Magnesium Hydrox/Alum Hydrox 30 Ml Oral.Susp PO 10/14/23 06:49 30 ml ONCE ONE Administration Belladonna Alkaloids/Phenobarbital 10 ml 10/14/23 06:48 10/14/23 07:23 Phenobarb/Hyoscy/Atropine/Scop 10 Ml Elixir PO 10/14/23 06:49 10 ml ONCE ONE Administration Ondansetron HCl 4 mg 10/14/23 06:48 10/14/23 07:23 Ondansetron Odt 4 Mg Tab.Carla FRIASU 10/14/23 06:49 4 mg ONCE ONE Administration Critical Care Time Critical Care Time Critical Care Time: No Discharge Plan Discharge Clinical Impression: Gastritis Patient Disposition: Home, Self-Care Instructions: Gastritis (ED), Diet for Stomach Ulcers and Gastritis (ED) Additional Instructions: Take your medications as prescribed. If you were prescribed antibiotics today, it is important that you take your medication to their entirety, do not skip any doses, do not finish them early. Follow-up with your primary care provider this week. Return to the emergency department with new or worsening symptoms. Such as fevers, chills, chest pain, shortness of breath, nausea, vomiting, dizziness, headache, vision changes, lethargy In case of emergency call 911 Prescriptions: New alum-mag hydroxide-simeth [Maalox Advanced] 200-200-20 mg/5 mL suspension 5 ml PO 5XD PRN (Reason: dyspepsia) Qty: 355 0RF Rx Instructions: administer between meals and at bedtime No Action albuterol sulfate [ProAir HFA] 90 mcg/actuation HFA aerosol inhaler 2 puff inhalation Q4-6H PRN (Reason: shortness of breath or wheezing) Qty: 8.5 0RF oxycodone 5 mg tablet 5 mg PO Q4H PRN (Reason: pain (scale score 7-10)) Qty: 20 0RF Rx Instructions: Partial Fill upon patient request. docusate sodium [Colace] 100 mg capsule 100 mg PO BID PRN (Reason: constipation) Qty: 30 0RF pantoprazole [Protonix] 40 mg tablet,delayed release (DR/EC) 40 mg PO DAILY Qty: 14 0RF [place] [facility] [place] [facility] [place] - 1 day Irma Sampson MD [Primary Care Provider] - 2 days Stand Alone Forms: Work/School Release
[2023-10-14 07:13] VITALS: BP 127/64; PULSE 67; RESP 18; TEMP 36.7; O2SAT 98
[2023-10-14] MEDS: PHENobarb/Hyoscy/Atropine/Scop 10 ML ELIXIR PO (07:23)
[2023-10-14] MEDS: Ondansetron ODT 4 MG TAB.RAPDIS TRANSLINGU (07:23)
[2023-10-14] MEDS: Magnesium Hydrox/Alum Hydrox 30 ML ORAL.SUSP PO (07:23)
--- NOTE | 2023-10-14 07:24 | PC.NURSE ---
patient a&ox3, c/o 03/24 mid abd pain, iv previously inserted by last shift/labs drawn at that time, pt vss, pt medicated per order, family at bedside, call chavez within reach, will continue to monitor
== END 2023-10-14 08:28 | disposition home or self-care (01) ==
PROVIDERS: Emergency Medicine; Emergency Provider Emergency Medicine Emergency Medical Services; PCP Internal Medicine
DX: K29.70 Gastritis, unspecified, without bleeding (principal); Z11.52 Encounter for screening for COVID-19; Z20.828 Contact with and (suspected) exposure to other viral communicable diseases; Z88.0 Allergy status to penicillin
CPT/HCPCS: 0241U; 36415; 80053; 81001; 83690; 84702; 85025; 99283; 99285

== ENCOUNTER 2023-12-02 19:11 | Outpatient (REF) | payer MEDICAID, SELFPAY ==
[2023-12-03 09:49] LABS: CT PCR NOT DETECTED (Not Detect.); NG PCR NOT DETECTED (Not Detect.)
[2023-12-03 13:08] LABS: BV Int Neg Control Negative (Negative); BV Int Pos Control Positive (Positive)
== END 2023-12-02 19:12 | disposition home or self-care (01) ==
LOC: HO.HHCLNP 19:11
PROVIDERS: Visit Provider Internal Medicine
DX: N89.8 Other specified noninflammatory disorders of vagina (principal); R39.9 Unspecified symptoms and signs involving the genitourinary system
CPT/HCPCS: 0353U; 87086; 87480; 87510; 87660

== ENCOUNTER 2024-01-03 10:27 | Day surgery (SDC) | payer MEDICAID, SELFPAY ==
--- NOTE | 2023-12-30 14:43 | HO.ANESPROP2 ---
Documented by User: Maribel Núñez NP 12/30/23 14:43 HPI - Anesthesia Eval Consult details Narrative: 23yo F for Upper Endoscopy PMFSH Active Problems Active Problems: All Active Problems Fibroadenoma of breast (Acute) Breakthrough bleeding on Nexplanon (Acute) Morbid obesity with BMI of 45.0-49.9, adult (Acute) Well woman exam with routine gynecological exam (Acute) Screen for sexually transmitted diseases (Acute) Hirsutism (Acute) Hair thinning (Acute) control counseling (Acute) Bilateral breast lump (Acute) Past Medical History Medical History GERD (gastroesophageal reflux disease) Hirsutism Family History Family History Father Hypertension Surgical History Surgical History History of breast lump/mass excision (11/17/22) Hx of knee surgery History of Problems with Anesthesia: No Social History Social History Alcohol intake: never Patient Tobacco Use Status: Never used Tobacco Are you DNR?: No Advance Directives: No Advance Directives Information Provided: Yes Nutrition Risks: No Nutritional Risk FDLMP: due today or tomor Meds Allergies Allergy/AdvReac Type Severity Reaction Status Date / Time Penicillins [PENICILLINS] Allergy Severe Anaphylaxis Verified 01/03/24 11:06 shellfish derived Allergy Severe Anaphylaxis Verified 01/03/24 11:06 Assessment and Plan Assessment Anesthesia Assessment: Chart Reviewed Final Anesthetic Review History of Problems with Anesthesia: No Documented by User: Ольга Lee MD 01/03/24 11:48 PMFSH Past Medical History Medical History GERD (gastroesophageal reflux disease) Hirsutism Family History Family History Father Hypertension Surgical History Surgical History History of breast lump/mass excision (11/17/22) Hx of knee surgery Social History Social History Alcohol intake: never Patient Tobacco Use Status: Never used Tobacco Are you DNR?: No Advance Directives: No Advance Directives Information Provided: Yes Nutrition Risks: No Nutritional Risk FDLMP: due today or tomor Meds Allergies Allergy/AdvReac Type Severity Reaction Status Date / Time Penicillins [PENICILLINS] Allergy Severe Anaphylaxis Verified 01/03/24 11:06 shellfish derived Allergy Severe Anaphylaxis Verified 01/03/24 11:06 Exam Airway Mallampati Class: III TM Dist: >3cm Neck ROM: Full Loose/Missing/Broken Teeth: No Heart: RRR Lungs: CTA Assessment and Plan Assessment Anesthesia Assessment: Anesthesia Plan Discussed Final Anesthetic Review NPO: Yes ASA Class: III Final Preanesthetic Review: Meds/Allgs Chart Reviewed, Consent Obtained/Reviewed and Anes Risks/Benef Reviewed Patient Risk: Intermediate Procedure Risk: Intermediate Anesthetic Plan Anesthetic Plan: MAC: Disposition: Standard PACU
[2024-01-02 07:06] VITALS: BMI 44.7
[2024-01-03 11:06] VITALS: BMI 44.7
[2024-01-03 11:11] LABS: UPreg QC Valid YES; Urine Pregnancy NEGATIVE (NEGATIVE)
[2024-01-03] MEDS: Lactated Ringers 1,000 ML 100 ML IVCONT (11:12)
[2024-01-03 11:19] VITALS: BP 139/82; PULSE 79; RESP 18; TEMP 36.7; O2SAT 98
--- NOTE | 2024-01-03 12:06 | MHC.SHP ---
Pre-Procedural Eval Section A - 24 Hr Update-Section A only Date of Service: 01/03/24 The patient is an INPATIENT: No Changes since office visit: No Cold of Flu in the past 2 weeks, No New Medical Problems, No Changes in Medication and No Patient answered all questions The patient has been examined within 24 hours of the surgical procedure. The History & Physical has been completed within 30 days and I have reviewed it.: Yes Section B - Complete if H&P > 30 days Chief Complaint: gerd Allergies: Allergies Allergy/AdvReac Type Severity Reaction Status Date / Time Penicillins [PENICILLINS] Allergy Severe Anaphylaxis Verified 01/03/24 11:06 shellfish derived Allergy Severe Anaphylaxis Verified 01/03/24 11:06 Plan I have reviewed the history and physical and performed a pertinent physical examination on my patient. No changes have occurred unless specified. Time Spent With Patient Time: Total time managing care of this patient today ____ minutes.
[2024-01-03 12:35] VITALS: BP 126/72; PULSE 70; RESP 18; TEMP 36.4; O2SAT 100
[2024-01-03 12:51] VITALS: BP 135/85; PULSE 76; RESP 18; TEMP 36.2; O2SAT 99
--- NOTE | 2024-01-03 12:59 | OP_ITS ---
DATE OF SERVICE: 01/03/2024 SURGEON: Yovanny Alexander MD INDICATIONS: Gastroesophageal reflux disease. PREOPERATIVE DIAGNOSIS: POSTOPERATIVE DIAGNOSIS: PROCEDURE PERFORMED: Upper endoscopy with biopsy. ESTIMATED BLOOD LOSS: COMPLICATIONS: ANESTHESIA: Monitored anesthesia care. ASSISTANTS: SPECIMENS: DESCRIPTION OF PROCEDURE: A history and physical was performed. The risks and benefits of the procedure were explained to the patient and informed consent was obtained. The patient was placed in the left lateral decubitus position. The Olympus video gastroscope was introduced into the esophagus, stomach, and duodenum. Examination was performed and the scope was removed. She tolerated the procedure well and was returned to recovery area in stable condition. FINDINGS: Esophagus: The esophagus was normal. There was no esophagitis. Stomach: The stomach showed no evidence of masses or ulcers. Duodenum: The bulb and 2nd portion were normal. Biopsies were obtained from the EG junction and antrum. IMPRESSION: Gastroesophageal reflux disease. RECOMMENDATION: Follow up the biopsy results. Yovanny Alexander MD BC/MODL / [id number]
== END 2024-01-03 14:08 | disposition home or self-care (01) ==
PROVIDERS: Nurse Practitioner; PCP Internal Medicine; Visit Provider Internal Medicine Gastroenterology
PROC: 0DJ08ZZ Inspection of Upper Intestinal Tract, Via Natural or Artificial Opening Endoscopic (ICD-10-PCS; CPT 43235; principal; 2024-01-03 13:10)
DX: K21.9 Gastro-esophageal reflux disease without esophagitis (principal); Z88.0 Allergy status to penicillin
CPT/HCPCS: 43239; 81025; 88305; 88313; 88342; J2704

== ENCOUNTER 2024-02-07 01:01 | Emergency (ER) | payer OTHER, SELFPAY ==
[2024-02-07 01:02] VITALS: BP 143/78; PULSE 90; RESP 18; TEMP 36.5; O2SAT 99; BMI 44.3
--- NOTE | 2024-02-07 01:14 | ED.ABDPAIN ---
HPI - Abdominal Pain General Chief Complaint: Abdominal Pain Stated Complaint: Abdominal Pain, Vomiting Time Seen by Provider: 02/07/24 01:06 Source: patient Mode of arrival: ambulatory Limitations: no limitations History of Present Illness ED Provider: Dr. Germain HPI narrative: Epigastric pain after having BBQ chicken Pertinent past history: other (GERD) Onset (ago): hour(s) Pain Consistency: intermittent Location: epigastric Related Data Previous Rx's ?Medication ?Instructions ?Recorded albuterol sulfate 90 mcg/actuation 2 puff inhalation Q4-6H PRN 06/04/21 aerosol inhaler (ProAir HFA) shortness of breath or wheezing #8.5 grams pantoprazole 40 mg tablet,delayed 40 mg PO DAILY #20 tabs 02/07/24 release (Protonix) Allergies Allergy/AdvReac Type Severity Reaction Status Date / Time Penicillins [PENICILLINS] Allergy Severe Anaphylaxis Verified 02/07/24 01:04 shellfish derived Allergy Severe Anaphylaxis Verified 02/07/24 01:04 Review of Systems Review of Systems Yes all other systems are reviewed and are negative Denies Sensory deficit (Neuro) [facility] Past Medical History Medical History GERD (gastroesophageal reflux disease) Hirsutism Surgical History History of breast lump/mass excision (11/17/22) Hx of knee surgery Family History Family History Father Hypertension Social History Social History Alcohol intake: never Patient Tobacco Use Status: Never used Tobacco Advance Directives: No Advance Directives Information Provided: Yes Physical Exam ED Vital Signs: Vital Signs - 24 hr 02/07/24 01:02 02/07/24 02:24 Temperature 97.7 F 98.2 F Pulse Rate 90 70 Respiratory Rate 18 16 Blood Pressure 143/78 H 122/51 L Pulse Oximetry 99 99 Oxygen Delivery Method Room Air Room Air BMI result Body Mass Index 44.3 Const General: healthy appearing Nutritional Appearance: obese Orientation/consciousness: oriented to person and patient oriented x3 Limitations: no limitations HENMT Head: Yes normal to inspection Ears: external ears normal General nose exam: Normal external nose present Mouth: Normal oral and palatal mucosa present and oropharynx normal Throat: Yes posterior oropharynx normal Eyes General: appearance normal, both eyes and all related structures Neck Neck: Yes normal visual inspection Chest Chest palpation & inspection: normal inspection of the chest Resp Auscultation: clear to auscultation bilaterally Cardio Jugular venous distension: no JVD Rate: regular rate Rhythm: regular rhythm Heart sounds: S1 normal heart sound present and S2 normal heart sound present GI Other: nontender epigastric area to palpation Inspection: Yes normal to inspection Palpation (GI): Soft to palpation, nontender and No hepatosplenomegaly present Auscultation: normal bowel sounds General: Yes no CVA tenderness Back/Spine/Pelvis Back: no CVA tenderness Skin General skin exam: no rashes or lesions noted Neuro General: oriented to person and patient oriented x3 Cranial nerves: Yes CN's II-XII intact bilaterally Motor exam (neuro): 5/5 motor strength present throughout Sensory Exam: No Sensory deficit (Neuro) Extrem General: Yes normal to inspection Psych Appearance: grossly normal Course Reevaluation(s) Reevaluation #1: Patient with history of and likely gastritis today Time: 02:54 Medical Decision Making Differential Diagnosis Differential Diagnoses: The differential diagnosis associated with the presentation includes (hepatitis, pancreatitis gastritis, PUD) Admission/Observation Consideration of admission/observation: Escalation of care including admission/observation considered (upon arrival patient was considered for admission) Lab Data 02/07/24 01:59 02/07/24 01:59 Labs: Lab Results 02/07/24 02/07/24 Range/Units 01:59 02:32 WBC 9.8 (4.8-10.8) X10*3/uL RBC 4.52 (4.20-5.50) X10*6/uL Hgb 12.9 (12.0-16.0) g/dl Hct 38.7 (37.0-47.0) % MCV 85.6 (80.0-98.0) fL MCH 28.5 (27.0-33.0) pg MCHC 33.3 (31.0-35.0) g/dl RDW 13.4 (11.0-16.0) % Plt Count 279 (160-400) X10*3/uL MPV 8.6 L (9.4-12.3) fL Immature Gran % (Auto) 0.4 (0.0-0.4) % Neut % (Auto) 63.4 (45-73) % Lymph % (Auto) 26.7 (20-40) % [place] % (Auto) 7.3 (2-11) % Eos % (Auto) 1.7 (0-4) % Baso % (Auto) 0.5 (0-2) % Lymph # (Auto) 2.6 (1.2-4.9) X10*3/uL [place] # (Auto) 0.7 (0.1-1.2) X10*3/uL Eos # (Auto) 0.2 (0.0-0.4) X10*3/uL Baso # (Auto) 0.1 (0.0-0.2) X10*3/uL Abs Immat Gran (auto) 0.04 H (0.00-0.03) X10*3/uL Absolute Neuts (auto) 6.2 (2.0-8.3) x10*3/uL Absolute Nucleated RBC 0.000 (0.0-0.012) X10*3/uL Nucleated RBC % (auto) 0.0 (0.0-0.2) /100WBC Sodium 139 (135-145) mmol/L Potassium 4.1 (3.3-5.1) mmol/L Chloride 106 (96-108) mmol/L Carbon Dioxide 26 (22-29) mmol/L Anion Gap 11 L (12-20) BUN 14 (9-16) mg/dL Creatinine 0.71 (0.5-1.4) mg/dL Estim Creat Clear Calc 186.2 Estimated GFR > 60 Random Glucose 113 (60-115) mg/dL Calcium 9.1 (8.4-10.2) mg/dL Total Bilirubin 0.3 (0.0-1.0) mg/dL AST 12 (5-31) U/L ALT 15 (0-31) U/L Alkaline Phosphatase 83 (39-117) U/L Total Protein 6.6 (6.5-8.0) g/dL Albumin 3.8 (3.5-5.0) g/dL Lipase 48 (8-78) U/L Urine Color Yellow Urine Appearance Clear Urine pH 7.0 (5.0-9.0) Ur Specific [place] 1.015 (1.005-1.025) Urine Protein Negative (Neg-Trace) mg/dL Urine Glucose (UA) Negative (Negative) mg/dL Urine Ketones Negative (Negative) mg/dL Urine Blood Negative (Negative) Urine Nitrite Negative (Negative) Ur Leukocyte Esterase Negative (Negative) Urine Test NEGATIVE (NEGATIVE) Independent Historian Clinical information obtained from an independent historian. History obtained from or confirmed by: Spouse Tests considered The following testing was considered but not selected: US of liver and gall bladder and CT of abdomen considered but patient with normal labs and soft abdomen Prescription Management I considered prescription management with: Pain Medication (Soft abdomen will not give narcotics) and Antibiotic (UA negative will not give abx) Medications Administered Discontinued Medications Generic Name Dose Route Start Last Admin Trade Name Freq PRN Reason Stop Dose Admin Al Hydroxide/Mg Hydroxide 30 ml 02/07/24 01:24 02/07/24 01:37 Magnesium Hydrox/Alum Hydrox 30 Ml Oral.Susp PO 02/07/24 01:25 30 ml ONCE ONE Administration Belladonna Alkaloids/Phenobarbital 10 ml 02/07/24 01:24 02/07/24 01:37 Phenobarb/Hyoscy/Atropine/Scop 10 Ml Elixir PO 02/07/24 01:25 10 ml ONCE ONE Administration Famotidine 20 mg 02/07/24 02:45 02/07/24 02:58 Famotidine 20 Mg Tablet PO 02/07/24 02:46 20 mg ONCE ONE Administration Lidocaine HCl 15 ml 02/07/24 01:24 02/07/24 01:37 Lidocaine Hcl Viscous 2 % 15 Ml Solution MUCOUS MEM 02/07/24 01:25 15 ml ONCE ONE Administration Ondansetron HCl 4 mg 02/07/24 01:24 02/07/24 01:35 Ondansetron Odt 4 Mg Tab.Rapdis TRANSLINGU 02/07/24 01:25 4 mg ONCE ONE Administration Discharge Plan Discharge Clinical Impression: Gastritis and duodenitis Patient Disposition: Home, Self-Care Instructions: Gastritis (ED), Duodenitis (ED) Prescriptions: New pantoprazole [Protonix] 40 mg tablet,delayed release (DR/EC) 40 mg PO DAILY Qty: 20 0RF No Action albuterol sulfate [ProAir HFA] 90 mcg/actuation HFA aerosol inhaler 2 puff inhalation Q4-6H PRN (Reason: shortness of breath or wheezing) Qty: 8.5 0RF Referrals: Physician,Unknown J [Primary Care Provider] - 5 days Print Language: Korean
[2024-02-07] MEDS: Ondansetron ODT 4 MG TAB.RAPDIS TRANSLINGU (01:35)
[2024-02-07] MEDS: Magnesium Hydrox/Alum Hydrox 30 ML ORAL.SUSP PO (01:37)
[2024-02-07] MEDS: Lidocaine HCl Viscous 2 % 15 ML SOLUTION MUCOUS MEM (01:37)
[2024-02-07] MEDS: PHENobarb/Hyoscy/Atropine/Scop 10 ML ELIXIR PO (01:37)
[2024-02-07 02:04] LABS: Basophils Absolute Auto 0.1 X10*3/uL (0.0-0.2); Basophils Percent Auto 0.5 % (0-2); Eosinophils Absolute Auto 0.2 X10*3/uL (0.0-0.4); Eosinophils Percent Auto 1.7 % (0-4); Hematocrit 38.7 % (37.0-47.0); Hemoglobin 12.9 g/dl (12.0-16.0); Imm Gran Abs Auto 0.04 X10*3/uL (0.00-0.03); Imm Gran Pct Auto 0.4 % (0.0-0.4); Lymphocytes Absolute Auto 2.6 X10*3/uL (1.2-4.9); Lymphocytes Percent Auto 26.7 % (20-40); MANUAL DIFF FLAG NO; Mean Corpuscular HGB Conc 33.3 g/dl (31.0-35.0); Mean Corpuscular Hemoglobin 28.5 pg (27.0-33.0); Mean Corpuscular Volume 85.6 fL (80.0-98.0); Mean Platelet Volume 8.6 fL (9.4-12.3); Monocytes Absolute Auto 0.7 X10*3/uL (0.1-1.2); Monocytes Percent Auto 7.3 % (2-11); Neutrophils Absolute Auto 6.2 x10*3/uL (2.0-8.3); Neutrophils Percent Auto 63.4 % (45-73); Platelet Count 279 X10*3/uL (160-400); Red Blood Count 4.52 X10*6/uL (4.20-5.50); Red Cell Distribution Width 13.4 % (11.0-16.0); White Blood Count 9.8 X10*3/uL (4.8-10.8)
[2024-02-07 02:24] VITALS: BP 122/51; PULSE 70; RESP 16; TEMP 36.8; O2SAT 99
[2024-02-07 02:27] LABS: Alanine Aminotransferase 15 U/L (0-31); Albumin Level 3.8 g/dL (3.5-5.0); Alkaline Phosphatase 83 U/L (39-117); Anion Gap 11 (12-20); Aspartate Amino Transferase 12 U/L (5-31); Bilirubin Total 0.3 mg/dL (0.0-1.0); Blood Urea Nitrogen 14 mg/dL (9-16); Calcium 9.1 mg/dL (8.4-10.2); Carbon Dioxide 26 mmol/L (22-29); Chloride 106 mmol/L (96-108); Creatinine Clr Calc Pharmacy 186.2; Estimated Glomerular Filt Rate > 60; Glucose Random 113 mg/dL (60-115); Lipase 48 U/L (8-78); Potassium 4.1 mmol/L (3.3-5.1); Sodium 139 mmol/L (135-145); Total Protein 6.6 g/dL (6.5-8.0)
[2024-02-07 02:40] LABS: Appearance Urine Clear; Color Urine Yellow; Glucose Urine UA Negative (Negative); Leukocyte Esterase Urine Negative (Negative); Nitrite Urine Negative (Negative); Specific Gravity - Urine 1.015 (1.005-1.025); Urine Blood Negative (Negative); Urine Ketones Negative (Negative); Urine Protein Negative (Neg-Trace)
[2024-02-07 02:42] LABS: UPreg QC Valid YES; Urine Pregnancy NEGATIVE (NEGATIVE)
[2024-02-07] MEDS: Famotidine 20 MG TABLET PO (02:58)
[2024-02-07 03:33] VITALS: BP 122/51; PULSE 70; RESP 16; TEMP 36.8; O2SAT 99
--- OUTSIDE RECORDS SUMMARY | 2024-02-09 07:57 | XMS_ITS | Patient Health Record ---
Author Organization [facility] Address [address] [place] [address] Care Team Providers Care Fashion Merchandiser Name Role Phone Irma Jimenez M.D. Primary Care Provider Yovanny Aguilar Jr Unavailable ALLERGIES Allergen (clinical drug ingredient) Drug/Non Drug Allergy documented on EMR Reaction Allergy Type Onset Date Status Penicillin Unknown Drug Allergy Active shrimp allergenic extract Shrimp (Diagnostic) Unknown Drug Allergy Active RESULTS Component Value Reference Range Notes Ur Preg Test Reviewed date:01/04/2024 07:02:20 AM Interpretation: Performing Lab:[facility], [address] [place] [phone] Notes/Report: Urine NEGATIVE NEGATIVE This test was developed to detect early . False negative results may occur after the 5th - 7th week of when using this test method. If clinically indicated, consider a serum hCG. Pathology Reviewed date:01/19/2024 10:56:36 AM Interpretation: Performing Lab:[facility], [address] [place] [phone] Notes/Report: REASON FOR REFERRAL Referring Provider First Name Irma Referring Provider Last Name Barbara Referred Organization [facility] Referred Provider Yovanny Alexander Jr Referred Address [address] [facility],[address],[place], [place],[address], Referred Provider Specialty Gastroentero logy General Notes Carmen Tellez 024 09:07:12 AM EDT > [facility] for visit with Dr. Alexander on 12-19-2023 Referral Priority Routine MEDICATIONS Medication SIG (Take, Route, Frequency, Duration) Notes Start Date End Date Status NexIUM 40 MG 1 capsule Orally Onc e a day for 30 day(s) 12/19/2023 Active IMMUNIZATIONS Vaccine Route Administration Date Status Comme nts Influenza Unknown 05/31/2023 Administered SOCIAL HISTORY Tobacco Use: Social History Observation Description Date Details (start date - stop date) Never Smoker NA - NA Sex Assigned At : Social History Observation Description Sex Assigned At Unknown Tobacco Use/Smoking Question Answer Notes Patient is a nonsmoker Alcohol Screen Question Answer Notes Did you have a drink containing alcohol in the p ast year? No Points 0 Interpretation Negative PROBLEMS Problem Type ICD Code Onset Dates Problem Status W/U Status Risk SNOMED Code Notes Problem Chronic GERD (K21.9) Active confirmed 658601873 Problem Gastroesophageal reflux disease without esophagitis (K21.9) Active confirmed Gastroesophagea l reflux disease without esophagitis (284214723) VITAL SIGNS Temperature 97.5 degrees Fahrenheit 12/19/2023 Blood pressure diastolic 00 mm Hg 12/19/2023 Height 5 ft 9 in in 12/19/2023 Blood pressure systolic 000 mm Hg 12/19/2023 Weight 303 lb 4 oz lbs 12/19/2023 BMI 44.78 kg/m2 12/19/2023 Encounters Encounter Location Date Provider Diagnosis [facility] [address] [place] [phone] 01/03/2024 Yovanny Alexander Jr Gastroesophageal reflux disease without esophagitis K21.9 [facility] [address] [place] [phone] 12/19/2023 Yovanny Alexander Jr Chronic GERD K21.9 [facility] [address] [place] [phone] 01/19/2024 Yovanny Alexander Jr [facility] [address] [place] [phone] 01/20/2024 Yovanny Alexander Jr ASSESSMENTS Encounter Date Diagnosis Assessment Notes Treatment Notes Treatment Clinical Notes 01/03/2024 Gastroesophageal ref lux disease without esophagitis (ICD-10 - K21.9) 12/19/2023 Chronic GERD (ICD-10 - K21.9) Endoscopy material was printed PLAN OF TREATMENT Future Test Test Name Order Date UPPER GI ENDOSCOPY 12/19/2023 Insurance Providers Payer Name Payer Address Payer Phone Subscriber Number Group Number Insured Name Patient Relationship to Insured Coverage Start Date Coverage End Date [place] OF [place] [address] [place] [phone] [id number] AURORA MCKNIGHT Self - patient is the insured MEDICAL (GENERAL) HISTORY Medical History History ICD Code Elevated BMI Breast fibroadenoma Gastroesophageal reflux disease Surgical History Surgery Date(Month/Year) ACL repair 2019 Left breast fibroadenomas excision 2022
== END 2024-02-07 03:34 | disposition home or self-care (01) ==
PROVIDERS: Emergency Provider Emergency Medicine
DX: K29.70 Gastritis, unspecified, without bleeding (principal); K29.80 Duodenitis without bleeding; Z79.899 Other long term (current) drug therapy
CPT/HCPCS: 36415; 80053; 81003; 81025; 83690; 85025; 99283

== ENCOUNTER 2024-06-22 16:17 | Outpatient (REF) | payer OTHER, SELFPAY ==
[2024-06-23 10:36] LABS: Adenovirus PCR Not Detected (Not Detect.); Bordetella parapertussis PCR Not Detected (Not Detect.); Bordetella pertussis PCR Not Detected (Not Detect.); Chlamydia pneumoniae PCR Not Detected (Not Detect.); Coronavirus 229E PCR Not Detected (Not Detect.); Coronavirus HKU1 PCR Not Detected (Not Detect.); Coronavirus NL63 PCR Not Detected (Not Detect.); Coronavirus OC43 PCR Not Detected (Not Detect.); Human metapneumovirus PCR Not Detected (Not Detect.); Influenza A PCR Not Detected (Not Detect.); Influenza B PCR Not Detected (Not Detect.); Mycoplasma pneumoniae PCR Not Detected (Not Detect.); Parainfluenza 1 PCR Not Detected (Not Detect.); Parainfluenza 2 PCR Not Detected (Not Detect.); Parainfluenza 3 PCR Not Detected (Not Detect.); Parainfluenza 4 PCR Not Detected (Not Detect.); RSV PCR Not Detected (Not Detect.); Rhino/Enterovirus PCR Detected (Not Detect.)
[2024-06-23 10:47] LABS: SARS-CoV-2 PCR Not Detected (Not Detect.)
== END 2024-06-22 16:18 | disposition home or self-care (01) ==
LOC: HO.HHCLNP 16:17
PROVIDERS: Visit Provider Family Medicine
DX: R05.2 Subacute cough (principal)
CPT/HCPCS: 87633

== ENCOUNTER 2024-09-17 14:18 | Outpatient (REF) | payer SELFPAY ==
--- OUTSIDE RECORDS SUMMARY | 2024-09-17 15:56 | XMS_ITS | Encounter Summary ---
Author Organization [employer] Address [address] [place] [address] Care Team Providers Care Senior Administrative Support Name Role Phone Irma Sampson MD Primary Care Provide r Encounter Details Date Type Department Care Team ([facility] st Contact Info) Description 09/17/2024 1:30 PM EST Office Visit [facility] MED[facility]INE [address] [place], [place] [phone] Felicia Cazares MD [address] [place], [place] [phone] Encounter for preventive health examination (Primary Dx); Family planning; Patient desires ; Vaginal discharge; Encounter for immunization Social History Tobacco Use Types Packs/Day Years Used Date Smoking Tobacco: Never Passive Smoke Exposure: Never Smokeless Tobacco: Never Alcohol Use Standard Drinks/Week Comments Never 0 (1 standard drink = 0.6 oz pur e alcohol) Depression Answer Date Recorded Patient Health Questionnaire-9 Score 9 08/31/2023 Patient Health Questionnaire-9 Score 9 08/31/2023 Last PHQ-9: Questionnaire Data Not on file 0 08/31/2023 Housing Stability Answer Date Recorded What is your housing situation today? I have shala frieda 08/23/[address] you li ve. Do you have problems with any of the following? None of the above 08/23/2023 Food Insecurity Answer Date Recorded Within the past 12 months, y ou worried that your food would run out before you got money to buy more: Never True 08/23/2023 Within the past 12 months,th e food you bought just didn't last and you didn't have enough money to get more: Never True 04/2024 Transportation Answer Date Recorded In the past 12 months, has l ack of transportation kept you from medical appts, meetings, work or from getting things needed for daily living? No 08/23/2023 Utilities Answer Date Recorded In the past 12 months, has t he electric, gas, oil or water company threatened to shut off services in your home? No 08/23/2023 Depression Answer Date Recorded Patient Health Questionnaire-2 Score 1 08/31/2023 Comments No Sex and Gender Information Value Date Recorded Sex Assigned at Female 06/14/2022 10:31 AM EDT Legal Sex Female 10:31 AM EDT Gender Identity Female 06/14/2022 10:31 AM EDT Sexual Orientation Straight 06/14/2022 10 :31 AM EDT documented as of this encounter Last Filed Vital Signs Vital Sign Reading Time Taken Comments Blood Pressure 120/80 09/17/2024 1:40 PM EST Pulse 87 09/17/2024 1:40 PM EST Temperature 36.1 ??C (97 ??F) 09/17/2024 1:40 PM EST Respiratory Rate 20 09/17/2024 1:40 PM EST Oxygen Saturation 97% 09/17/2024 1:40 PM EST Inhaled Oxygen Concentration - - Weight 133 kg (294 lb) 09/17/2024 1:40 PM EST Height 172.1 cm (5' 7.75 ) 09/17/2024 1:40 PM ES T Body Mass Index 45.03 09/17/2024 1:40 PM EST documented in this encounter Miscellaneous Notes * Assessment & Plan Note - Jennifer Mota MA - 09/17/2024 2:12 PM EST Associated Problem(s): Encounter for preventive health examination Discussed with patient re increase fresh fruit and vegetable intake. Counseled re moderate exercise as tolerated, up to 20min/d Patient feels safe at home. PAP smear: due in 2 years, she will retreat her previous pap smear results and fu with PCP. Eye exam: UTD, next one due 11/2025 Lipids/FBS: UTD, next one due 2025 Vaccinations: she agreed to influenza and COVID immunizations today, other adult IZ are UTD. Dental visit: UTD, next one due 03/2025 documented in this encounter Plan of Treatment Upcoming Encounters Date Type Department Care Team (Late st Contact Info) Description 11/23/2024 2:00 PM EDT Office Visit [facility] OPTOMETRY [address] [place] [address] Roly, Delia, OD [address] [place] [address] Scheduled Orders Name Type Priority Associated Diagnoses Orde r Schedule HIV-1/2 Antigen and Antibodies, Fourth Generation, with Reflexes Lab Routine Encounter for preventive health examination Patient desires Expected: 09/17/2024 (Approximate), Expires: 09/17/2025 Hepatitis Panel, General Lab Routine Encounter for preventive health examination Expected: 09/17/2024 (Approximate), Expires: 09/17/2025 Syphilis Screen Lab Routine Encounter for preventive health examination Expected: 09/17/2024 (Approximate), Expires: 09/17/2025 Chlamydia/N. Gonorrhoeae RNA, TMA, Urogenitial Microbiology Routine Vaginal discharge Ordered: 09/17/2024 T-SPOT??.TB Lab Routine Encounter for preventive health examination Patient desires Expected: 09/17/2024 (Approximate), Expires: 09/17/2025 Measles, Mumps, and Rubella (MMR) Antibodies??(IgG) Panel, Immune Status Lab Routine Encounter for preventive health examination Patient desires Expected: 09/17/2024 (Approximate), Expires: 09/17/2025 documented as of this encounter Visit Diagnoses Diagnosis Encounter for preventive health examination- Primary Family planning Other general counseling and advice for contraceptive management Patient desires Vaginal discharge Leukorrhea, not specified as infective Encounter for immunization documented in this encounter Additional Health Concerns Assessment Noted Time PHQ-9 Depression Total Score: 9 08/31/19 24 9:18 AM EST documented as of this encounter Care Teams Senior Administrative Support Relationship Specialty Start Date End Date Barciona Valentin, Parvin, MD [address] [place] [address] PCP - General Internal Medicine 08/11/23 documented as of this encounter
--- OUTSIDE RECORDS SUMMARY | 2024-09-17 15:56 | XMS_ITS | Encounter Summary ---
Author Organization [email or web address] Address [address] [place] [address] Care Team Providers Care Supervisor Green End Department Name Role Phone Irma Sampson MD Primary Care Provide r Encounter Details Date Type Department Care Team (Latest Contact Info) Description 09/17/2024 Travel Social History Tobacco Use Types Packs/Day Years [...] your housing situation today? I have shala malave 08/23/[address] you li [...] AM EDT documented as of this encounter Plan of Treatment Upcoming Encounters Date Type Department Care Team (Late st Contact Info) Description 11/23/2024 2:00 PM EDT Office Visit [facility] OPTOMETRY [address] [place] [address] Delia Dunham, OD [address] [place] [address] documented as of this encounter Visit Diagnoses Not on filedocumented in this encounter Additional Health Concerns Assessment Noted Time PHQ-9 Depression Total Score: 9 08/31/19 24 9:18 AM EST documented as of this encounter Care Teams Supervisor Green End Department Relationship Specialty Start Date End Date Irma Sampson MD [address] [place] [address] PCP - General Internal Medicine 08/11/23 documented as of this encounter
--- OUTSIDE RECORDS SUMMARY | 2024-09-17 15:56 | XMS_ITS | Encounter Summary ---
Author Organization [employer] Address [address] [facility] [address] [address] [place] [address] Care Team Providers Care Chicken Stuffer Name Role Phone Irma Sampson MD Primary Care Provide r Reason for Visit * Reason Comments Pre-visit Planning (Unable to reach for PVP screening, LVM) Encounter Details Date Type Department Care Team ([facility] st Contact Info) Description 09/05/2024 Patient Outreach [facility] MEDICINE [address] [place] [address] Irma Sampson MD [address] [place] [address] Pre-visit Planning ((Unable to reach for PVP screening, LVM)) Social History Tobacco Use Types Packs/Day Years [...] AM EDT documented as of this encounter Progress Notes * Hilda De Luna - 09/05/2024 10:08 AM EST ELLY Stevens. Placed outbound call to patient to complete pre-visit planning. No answer at this time. Patient name and were not confirmed. CC left voicemail requesting return call. Direct contact information provided. documented in this encounter Plan of Treatment Upcoming Encounters Date Type Department Care Team (Late st Contact Info) Description 11/23/2024 2:00 PM EDT Office Visit [facility] OPTOMETRY [address] [place] [address] Delia Dunham, OD [address] [place] [address] documented as of this encounter Visit Diagnoses Not on filedocumented in this encounter Additional Health Concerns Assessment Noted Time PHQ-9 Depression Total Score: 9 08/31/19 24 9:18 AM EST documented as of this encounter Care Teams Chicken Stuffer Relationship Specialty Start Date End Date Irma Sampson MD [address] [place] [address] PCP - General Internal Medicine 08/11/23 documented as of this encounter
--- OUTSIDE RECORDS SUMMARY | 2024-09-17 15:56 | XMS_ITS | Encounter Summary ---
Author Organization [employer] Address [address] [facility] [address] [place] [address] Care Team Providers Care Utilities Ground Worker Name Role Phone Valeri Turner MD Primary Care Provider Taylor Hernandez Primary Care Provider [phone] Irma Sampson MD Primary Care Provide r Encounter Details Date Type Department Care Team (Latest Contact Info) Description 07/06/2019 Abstract [facility] CONVERSIONS Dental, Provider, DDS Social History Tobacco Use Types Packs/Day Years Used Date Smoking Tobacco: Never Assessed Comments Unknown Sex and Gender Information Value Date Recorded Sex Assigned at Female 06/14/2022 10:31 AM EDT Legal Sex Female 10:31 AM EDT Gender Identity Female 06/14/2022 10:31 AM EDT Sexual Orientation Straight 06/14/2022 10 :31 AM EDT documented as of this encounter Plan of Treatment Upcoming Encounters Date Type Department Care Team ( st Contact Info) Description 11/23/2024 2:00 PM EDT Office Visit [facility] OPTOMETRY [address] [place] [address] Delia Dunham, OD [address] [place] [address] documented as of this encounter Visit Diagnoses Not on filedocumented in this encounter Care Teams Utilities Ground Worker Relationship Specialty Start Date End Date Valeri Turner MD PCP - General Family Medicine 09/28/21 07/11/22 Taylor Cuellar FNP [address] [place] [address] PCP - General Family Medicine 07/12/22 08/10/23 Irma Sampson MD [address] [place] [address] PCP - General Internal Medicine 08/11/23 documented as of this encounter
--- OUTSIDE RECORDS SUMMARY | 2024-09-17 15:56 | XMS_ITS | Encounter Summary ---
Author Organization [employer] Address [address] [address], [place] [address] Care Team Providers Care Order Schedule Clerk Name Role Phone Taylor Cuellar Primary Care Provider [phone] Irma Sampson MD Primary Care Provide r Encounter Details Date Type Department Care Team (Late st Contact Info) Description 10/18/2022 Orders Only [facility] MEDICINE [address] [place] [address] Taylor Cuellar FNP [address] [place] [address] Bacterial vaginosis (Primary Dx) Social History Tobacco Use Types Packs/Day Years [...] Description 11/23/2024 2:00 PM EDT Office Visit [facility] OPTOMETRY [address] [place] [address] RolyDelia olivo, OD [address] [place] [address] documented as of this encounter Visit Diagnoses Diagnosis Bacterial vaginosis- Primary Unspecified vaginitis and vulvovaginitis documented in this encounter Care Teams Order Schedule Clerk Relationship Specialty Start Date End Date Taylor Cuellar FNP [address] [place] [address] PCP - General Family Medicine 07/12/22 08/10/23 Irma Sampson MD [address] [place] [address] PCP - General Internal Medicine 08/11/23 documented as of this encounter
--- OUTSIDE RECORDS SUMMARY | 2024-09-17 15:56 | XMS_ITS | Clinical Summary ---
Author Organization [employer] Address [address] [facility] 7t [place] [address] Care Team Providers Care Restuarant Crew Worker Name Role Phone Irma Sampson MD Primary Care Provide r Allergies Active Allergy Reactions Criticality Noted Date Comments Penicillins Rash Low 10/18/2022 Shellfish-Derived Products Anaphylaxis High 10/14/19 24 Medications Blood Pressure Monitoring (Adult Blood Pressure Cuff Lg) kit 1 each Once daily. Bring your machine or list of home measurements to your next appt. 1 kit 12/23/19 23 Active Mometasone Furoate (Asmanex HFA) 100 MCG/ACT aerosolIndicat ions:Moderate persistent asthma, unspecified whether complicated Inhale 2 puffs 2 times daily. 13 g 1 12/02/19 24 Active Additional Information Patient not taking.Reported on 09/17/2024 Spacer/Aero-Ho lding Chambers (OptiChamber Mima) miscIndication s:Moderate persistent asthma, unspecified whether complicated 1 each every 4 (four) hours if needed (asthma). 1 each 12/02/19 24 Active albuterol 108 (90 Base) MCG/ACT inhalerIndicat ions:Moderate persistent asthma, unspecified whether complicated Inhale 2 puffs every 4 (four) hours if needed for wheezing or shortness of breath. 18 g 1 12/02/19 24 2024 Active multivitamin () 27-0.8 MG tabletIndicati ons:Family planning Take 1 tablet by mouth Once per day. 30 tablet 11 09/17/19 25 Active multivitamin () 27-0.8 MG tabletIndicati ons:Family planning Take 1 tablet by mouth in the morning. 30 tablet 3 09/26/19 24 2024 Discontinued(R eorder (will not trigger notification to Pharmacy)) esomeprazole (NexIUM) [address] capsule Take 1 capsule (40 mg) by mouth before breakfast. 30 capsule 05/08/20 24 2024 Discontinued(T herapy completed) Active Problems Problem Noted Date Diagnosed Date Encounter for preventive health examination 10/2024 Assessment & Plan (09/17/2024 2:58 PM EST): Discussed with patient re increase fresh fruit [...] Dental visit: UTD, next one due 03/2025 Patient desires 09/17/2024 UTI symptoms 12/02/2023 Assessment & Plan (12/02/2023 10:01 AM EDT): Drink plenty of water and do not hold the urine Macrobid prescribed UA and culture, patient to be contacted with results Vaginal discharge 12/02/2023 Moderate asthma 12/02/2023 Assessment & Plan (12/02/2023 10:02 AM EDT): C/w albuterol inhaler PRN with inhaler I added today asmanex BID Patient educated to avoid asthma triggers Temporary high blood pressure 12/02/2023 GERD (gastroesophageal reflux disease) Assessment & Plan (06/02/2024 3:13 PM EDT): Acute flare after heavy meal, reviewed low acid foods, rx as written below, avoid nsaids Return to clinic for worsening pain or failure to improve Small frequent meals advised Assessment & Plan (09/26/2023 4:21 PM EST): Patient reports she feels much better I advise patient to avoid NSAIDs, spicy and acid food, I advise to eat at the same time every day, I advise to elevate the head of the bed and take medications as prescribe Mild intermittent asthma without complication Assessment & Plan (09/26/2023 4:21 PM EST): Patient educated to avoid asthma triggers C/w albuterol PRN Family planning 09/26/2023 Assessment & Plan (09/26/2023 4:22 PM EST): Counseling done vitamins prescribed Benign intracranial hypertension 12/22/2022 Failed hearing screening 12/22/2022 Knee pain 12/22/2022 Obesity 12/22/2022 Seasonal allergies 12/22/2022 Vitamin D deficiency 12/22/2022 Hypermetropia 04/28/2018 Lactose intolerance 03/07/2018 Depressive disorder 04/14/2017 Posttraumatic stress disorder 04/14/2017 Encounters Date Type Department Care Team Description 09/17/2024 1:30 PM EST Office Visit [facility] [address] [place] [phone] Felicia Cazares MD Encounter for preventive health examination (Primary Dx); Family planning; Patient desires ; Vaginal discharge; Encounter for immunization 09/17/2024 Travel 09/05/2024 Patient Outreach [facility] [address] [place] [phone] Irma Sampson MD Pre-visit Planning ((Unable to reach for PVP screening, LVM)) 06/22/2024 9:40 AM EST Office Visit [facility] [address] [place] [phone] Alli Crawford MD Subacute cough (Primary Dx) from Last 3 Months Immunizations Name Administration Dates Next Due DTaP 08/01/2006, 4,01/29/2003,11/26,2002 HPV 9-Valent 04/14/2017,08/23/2013 Hep A, ped/adol, 2 dose 04/28/2018,04/14/2017 Hep B, Adolescent or Pediatric 01/29/2003,2002,2002 HiB, unspecified 11/18/2003,01/29/2003 Hib (PRP-T) 2002 IPV 08/01/2006, 3,2002,09/28 Influenza injectable quadriv alent preservative free 08/31/2023,09/08/2020,08/28/2018 Influenza, IIV3, injectable 05/31/2023 Influenza, seasonal, injecta ble, preservative free 09/17/2024 MMR 10/20/2006,07/29/2003 Meningococcal MCV4P ACYW-135 08/28/2018,08/23/19 14 Pfizer Covid-19 Vaccine 12+ 09/17/2024, 4 Pneumococcal Conjugate PCV 13 01/29/2003, 003,2002 TD (adult), 2 Lf tetanus tox oid, preservative free, adsorbed 08/23/2013 Tdap 08/31/2023,08/23/2013 Varicella 10/20/2006,07/29/2003 Family History Medical History Relation Name Comments prediabetes Brother Hypertension Father abdominal concerns Father Endometriosis Mother Bone cancer Other Maternal Great GF Relation Name Status Comments Brother Father Mother Other Maternal Great GF Social History Tobacco Use Types Packs/Day Years Used Date Smoking Tobacco: Never Passive Smoke Exposure: Never Smokeless Tobacco: Never Tobacco Cessation:Counseling Given: Not Answered Alcohol Use Standard Drinks/Week Comments Never 0 [...] Orientation Straight 06/14/2022 10 :31 AM EDT Last Filed Vital Signs Vital Sign Reading [...] Mass Index 45.03 09/17/2024 1:40 PM EST Plan of Treatment Upcoming Encounters Date Type Department Care Team (Late st Contact Info) Description 11/23/2024 2:00 PM EDT Office Visit [facility] [address] [place] [address] Roly, Delia, OD [address] [place] [address] Health Maintenance Due Date Last Done Comments HIV Screening 2002 Pneumococcal Vaccine: Pediatrics (0 to 5 Years) and At-Risk Patients (6 to 49) Years) (1 of 1 - PPSV23) 2008 01/29/2003, 2002, 2002 Alcohol/Substance Use Screening 2014 Family Planning (PISQ) 2017 Hepatitis C Screening 2020 Pap Smear 2023 Depression Monitoring (PHQ-9) 02/29/2024 08/31/2023, 08/31/2023 Depression Screening 08/31/2024 08/31/2023, 08/31/19 24 SDOH Screening 08/31/2024 08/31/2023 Chlamydia and Gonorrhea Screening 12/01/2024 12/02/2023, 08/25/2023, 10/15/2022, Additional history exists Lipid Panel 04/08/2025 04/08/2020 Tobacco Screening 06/22/2025 06/22/2024 DTaP/Tdap/Td Vaccines (9 - Td or Tdap) 08/31/2033 08/31/2023, 08/23/2013, 08/23/2013, Additional history exists Zoster Vaccines (1 of 2) 2052 RSV Patients and Patients Aged 60 years or older (1 - 1-dose 75+ series) 2077 Hepatitis B Vaccines Completed 01/29/2003, 2002, 2002 HIB Vaccines Completed 11/18/2003, 01/13, 2002 IPV Vaccines Completed 08/01/2006, 03/16, 2002, Additional history exists HPV Vaccines Completed 04/14/2017, 08/23/2013 Hepatitis A Vaccines Completed 04/28/2018, 04/14/20 Meningococcal Vaccine Completed 08/28/2018, 014 COVID-19 Vaccine Completed 09/17/2024, , 01/01/2021, Additional history exists Influenza Vaccine Completed 09/17/2024, , 05/31/2023, Additional history exists RSV under 20 months Aged Out No longe r eligible based on patient's age to complete this topic Rotavirus Vaccines Aged Out No longer eligible based on patient's age to complete this topic Procedures Procedure Name Priority Date/Time Associated Diagnosis Comments POCT INFLUENZA B (ID NOW RAPID MOLECULAR) Routine 06/22/2024 9:34 AM EST Subacute cough POCT INFLUENZA A (ID NOW RAPID MOLECULAR) Routine 06/22/2024 9:34 AM EST Subacute cough POCT RAPID COVID ANTIGEN Routine 06/22/2024 9:28 AM EST Subacute cough RESPIRATORY VIRAL PANEL PCR Routine 06/22/2024 12:00 AM EST Subacute cough CHLAMYDIA/N. GONORRHOEAE RNA, TMA, UROGENITAL Routine 12/02/2023 9:27 AM EDT Vaginal discharge LIPID PANEL, STANDARD Routine 04/08/2020 8:35 AM EDT from Last 3 Months or Most Recently Relevant to Health Maintenance Results * Influenza B (ID NOW Rapid Molecular) (06/22/2024 9:34 AM EST) Influenza B Negative Negative, Indeterminate [facility] Swab 06/22/2024 9:34 AM EST us Alli Crawford MD POINT OF CARE TEST ENTER/EDIT OR DERABLES Final Result Performing Organization Address [facility] Co de Phone Number [facility] [address] [place] [address] [phone] * Influenza A (ID NOW Rapid Molecular) (06/22/2024 9:34 AM EST) Influenza A Negative Negative, Indeterminate [facility] Swab 06/22/2024 9:34 AM EST us Alli Crawford MD POINT OF CARE TEST ENTER/EDIT OR DERABLES Final Result Performing Organization Address [facility] Co de Phone Number [facility] [address] [place] [phone] * POCT Rapid COVID Ag (06/22/2024 9:28 AM EST) Rapid COVID Ag Negative Swab 06/22/2024 9:28 AM EST Alli Crawford MD POINT OF CARE TEST ENTER/EDIT OR DERABLES Final Result * (ABNORMAL) Respiratory Viral Panel PCR (06/22/2024 12:00 AM EST) Adenovirus PCR Not Detected Not Detect. [facility] Bordetella pertussis PCR Not Detected Not Detect. [facility] Comment:Interpret results wi th caution. If B. pertussis isspecifically suspected, additional testing using analternate method is recommended. Bordetella parapertussis PCR Not Detected Not Detect. [facility] Chlamydia pneumoniae PCR Not Detected Not Detect. [facility] Coronavirus 229E PCR Not Detected Not Detect. [facility] Coronavirus HKU1 PCR Not Detected Not Detect. [facility] Coronavirus NL63 PCR Not Detected Not Detect. [facility] Coronavirus OC43 PCR Not Detected Not Detect. [facility] SARS-CoV-2 PCR Not Detected Not Detect. [facility] Comment:SARS-CoV-2 not detec jackson by real-time RT-PCR.Note: If clinical suspicion for Sars-CoV-2 is high, continueto maintain precautions and consider repeat testing.Test results should be interpreted in the context ofclinical findings and other laboratory data.Rare polymorphisms exist that could lead to false-negativeor false-positive results. If results do not match theclinical findings, additional testing should be considered.Results reported to [facility].This test has been authorized by the FDA under the EmergencyUse Authorization (EUA) for use by authorized laboratories. Influenza A PCR Not Detected Not Detect. [facility] Influenza B PCR Not Detected Not Detect. [facility] Human metapneumovirus PCR Not Detected Not Detect. [facility] Rhino/Enterovirus PCR Detected(A) Not Detect. [facility] Mycoplasma pneumoniae PCR Not Detected Not Detect. [facility] Parainfluenza 1 PCR Not Detected Not Detect. [facility] Parainfluenza 2 PCR Not Detected Not Detect. [facility] Parainfluenza 3 PCR Not Detected Not Detect. [facility] Parainfluenza 4 PCR Not Detected Not Detect. [facility] RSV PCR Not Detected Not Detect. [facility] Resp Panel NA Note See Note [facility] Comment:All results must be correlated with clinical findings.Negative results should not be used as the sole basis fordiagnosis, treatment, or other management decisions.A negative result does not exclude the possibility of viralor bacterial infection. Negative results may occur from thepresence of sequence variants in the region targeted by theassay, the presence of inhibitors, an infection caused by anorganism not detected by the panel, or lower respiratorytract infections that are not detected by a nasopharyngealswab specimen. Test results may also be affected byconcurrent antiviral/antibacterial therapy or levels oforganism in the specimen that are below the limit ofdetection for this test.This assay is performed by Multiplexed PCR, utilizing [employer] Film Array. 06/22/2024 06/22/2024 us Alli Crawford MD LAB BLOOD ORDERABLES Final Resul t [facility] [address] [place] [phone] * Chlamydia/N. Gonorrhoeae RNA, TMA, Urogenitial (12/02/2023 9:27 AM EDT) CT PCR NOT DETECTED Not Detect. [facility] Comment:A not detected test result does not exclude the possibilityof infection because test results can be affected byimproper specimen collection, concurrent antibiotic therapy,or the number of organisms in the specimen which may bebelow the sensitivity of the test. As with many diagnostictests, results from the Xpert CT/NG assay should beinterpreted in conjunction with other laboratory andclinical data available to the clinician.Xpert CT/NG performance has not been evaluated in patientsless than 14 years of age. The assay should not be used forthe evaluationof suspected sexual abuse or for other medico-legalindications. Additional testing is recommended in anycircumstance when false positive or false negative resultscould lead to adverse medical, social or psychologicalconsequences. NG PCR NOT DETECTED Not Detect. [facility] Comment:A not detected test result does not exclude the possibilityof infection because test results can be affected byimproper specimen collection, concurrent antibiotic therapy,or the number of organisms in the specimen which may bebelow the sensitivity of the test. As with many diagnostictests, results from the Xpert CT/NG assay should beinterpreted in conjunction with other laboratory andclinical data available to the clinician.Xpert CT/NG performance has not been evaluated in patientsless than 14 years of age. The assay should not be used forthe evaluationof suspected sexual abuse or for other medico-legalindications. Additional testing is recommended in anycircumstance when false positive or false negative resultscould lead to adverse medical, social or psychologicalconsequences. Swab (Vaginal Swab) 12/02/2023 9:27 AM EDT 12/02/2023 7:47 PM EDT Narrative [facility] - 12/03/2023 9:49 AM EDT Vaginal us Irma Valentin MD LAB MICROBIOLOGY - NERAL ORDERABLES Final Result [facility] [address] [place] [phone] * (ABNORMAL) LIPID PANEL, STANDARD (04/08/2020 8:35 AM EDT) Triglycerides 98(H) <90 mg/dL [facility] Chol/HDLC Ratio 3.0 <5.0 (calc) [facility] Cholesterol, Total 118 <170 mg/dL [facility] LDL Cholesterol 61 <110 mg/dL (calc) [facility] Comment: LDL-C is now calculated using the Felipe ?? calculation, which is a validated novel method providing ?? better accuracy than the Friedewald equation in the ?? estimation of LDL-C. ?? Salomon KAHN et al. [place]. 2013;310(19): 5721-5506 ?? (http://education.DistalMotion/faq/UNK019) HDL Cholesterol 39(L) >45 mg/dL [facility] LDL Cholesterol 61 <110 mg/dL (calc) [facility] Comment: LDL-C is now calculated using the Salomon-[place] ?? calculation, which is a validated novel method providing ?? better accuracy than the Friedewald equation in the ?? estimation of LDL-C. ?? Salomon SS et al. [place]. 2013;310(19): 1268-1397 ?? (http://BeanStockd.CloudPartner.SayHired[employer] Inc./faq/AXB667) Cholesterol, Total 118 <170 mg/dL [facility] HDL Cholesterol 39(L) >45 mg/dL [facility] Non-HDL Cholesterol 79 <120 mg/dL (calc) [facility] Comment: For patients with diabetes plus 1 major ASCVD risk ?? factor, treating to a non-HDL-C goal of <100 mg/dL ?? (LDL-C of <70 mg/dL) is considered a therapeutic ?? option. Chol/HDLC Ratio 3.0 <5.0 (calc) [facility] Triglycerides 98(H) <90 mg/dL [facility] LDL Cholesterol 61 <110 mg/dL (calc) [facility] Comment: LDL-C is now calculated using the Salomon-[place] ?? calculation, which is a validated novel method providing ?? better accuracy than the Friedewald equation in the ?? estimation of LDL-C. ?? Salomon KAHN et al. [place]. 2013;310(19): 6815-2822 ?? (http://BeanStockd.CloudPartner.[employer]Hired[employer] Inc./faq/CBD777) HDL Cholesterol 39(L) >45 mg/dL [facility] Chol/HDLC Ratio 3.0 <5.0 (calc) [facility] Cholesterol, Total 118 <170 mg/dL [facility] Non-HDL Cholesterol 79 <120 mg/dL (calc) [facility] Comment: For patients with diabetes plus 1 major ASCVD risk ?? factor, treating to a non-HDL-C goal of <100 mg/dL ?? (LDL-C of <70 mg/dL) is considered a therapeutic ?? option. Non-HDL Cholesterol 79 <120 mg/dL (calc) [facility] Comment: For patients with diabetes plus 1 major ASCVD risk ?? factor, treating to a non-HDL-C goal of <100 mg/dL ?? (LDL-C of <70 mg/dL) is considered a therapeutic ?? option. Triglycerides 98(H) <90 mg/dL [facility] 04/08/2020 8:35 AM EDT Jenn Nieto MD LAB BLOOD ORDERABLES Final Result [facility] [address] from Last 3 Months or Most Recently Relevant to Health Maintenance Insurance [facility] , [address] [place] [address] Care Teams Restuarant Crew Worker Relationship Specialty Start Date End Date Irma Sampson MD [address] [place] [phone] PCP - General Internal Medicine 08/11/23
[2024-09-18 08:08] LABS: Syphilis Screen Nonreactive (Nonreactive)
[2024-09-18 08:46] LABS: HBS Num1 1.39 mIU/mL (0-7.99); HBc Num1 0.19 S/CO (0.00-0.79); HBsAGNum1 0.35 S/CO (0.00-0.99); HIV AB/AG Nonreactive (Nonreactive); HIV Num 1 0.07 S/CO (0.00-0.99); Hepatitis A Antibody IgM 0.14 Index (0-0.79); Hepatitis B Core Antibody Nonreactive (Nonreactive); Hepatitis B Surface Antigen Negative (Negative); ~HepC Num1 0.17 S/CO (0.00-0.79); ~Hepatitis A Antibody IgM Nonreactive (Nonreactive); ~Hepatitis B Surface Antibody NONREACTIVE (Nonreactive); ~Hepatitis C Antibody Nonreactive (Nonreactive)
[2024-09-19 09:24] LABS: Rubella IgG Antibody 3.57 Index; Rubeola IgG (Measles) >300.00 AU/mL
[2024-09-20 04:53] LABS: TS Negative Control Passed; TS Panel A 1; TS Panel B 0; TS Positive Control Passed; TSpotTB Negative (Negative)
== END 2024-09-17 14:19 | disposition home or self-care (01) ==
LOC: HO.HHCL 14:18
PROVIDERS: Visit Provider Internal Medicine
DX: Z00.00 Encounter for general adult medical examination without abnormal findings (principal); Z11.4 Encounter for screening for human immunodeficiency virus [HIV]; Z11.1 Encounter for screening for respiratory tuberculosis
CPT/HCPCS: 36415; 86481; 86704; 86706; 86709; 86735; 86762; 86765; 86780; 86803; 87340; 87389

== ENCOUNTER 2024-09-26 11:08 | Outpatient (REF) | payer SELFPAY ==
--- OUTSIDE RECORDS SUMMARY | 2024-09-26 13:02 | XMS_ITS ---
Author Organization [facility] Address [address] [place] [address] Care Team Providers Care Biomedical Equipment Tech Name Role Phone Irma Jimenez M.D. Primary Care Provider Yovanny Aguilar Jr REASON FOR VISIT pathology Encounters Encounter Location Date Provider Diagnosis [facility] [address] [place] [address] 01/19/2024 Yovanny Alexander Jr PLAN OF TREATMENT No Information
--- OUTSIDE RECORDS SUMMARY | 2024-09-26 13:02 | XMS_ITS ---
Author Organization [facility] Address [address] [place] [address] Care Team Providers Care Vocational Rehabilitation Consultant Name Role Phone Irma Jimenez M.D. Primary Care Provider Yovanny Aguilar Jr REASON FOR VISIT gerd PROBLEMS Problem Type ICD Code Onset Dates Problem Status W/U Status Risk SNOMED Code Notes Problem Gastroesophageal reflux disease without esophagitis (K21.9) Active confirmed Gastroesophagea l reflux disease without esophagitis ([id number]) Encounters Encounter Location Date Provider Diagnosis [facility] [address] [place] [phone] 01/03/2024 Yovanny Alexander Jr Gastroesophageal reflux disease without esophagitis K21.9 ASSESSMENTS Encounter Date Diagnosis Assessment Notes Treatment Notes Treatment Clinical Notes 01/03/2024 Gastroesophageal ref lux disease without esophagitis (ICD-10 - K21.9) PLAN OF TREATMENT No Information
--- OUTSIDE RECORDS SUMMARY | 2024-09-26 13:03 | XMS_ITS | Encounter Summary ---
Author Organization [employer] Address [address] [facility] [address] [place] [address] Care Team Providers Care Custom Decorating Consultant Name Role Phone Valeri Turner MD Primary Care Provider Taylor Hernandez Primary Care Provider [phone] Irma Sampson MD Primary Care Provide r Encounter Details Date Type Department Care Team (Latest Contact Info) Description 07/06/2019 Abstract [facility] CON[facility] Dental, Provider, DDS Social History [...] Description 11/23/2024 2:00 PM EDT Office Visit [facility] [address] [place] [address] Delia Dunham, OD [address] [place] [address] documented as of this encounter Visit Diagnoses Not on filedocumented in this encounter Care Teams Custom Decorating Consultant Relationship Specialty Start Date End Date Valeri Turner MD PCP - General Family Medicine 09/28/21 07/11/22 Taylor Cuellar FNP [address] [place] [address] PCP - General Family Medicine 07/12/22 08/10/23 Irma Sampson MD [address] [place] [address] PCP - General Internal Medicine 08/11/23 documented as of this encounter
--- OUTSIDE RECORDS SUMMARY | 2024-09-26 13:03 | XMS_ITS | Encounter Summary ---
Author Organization [employer] Address [address] [facility] [address] [place] [address] Care Team Providers Care Vp Of Technology Name Role Phone Irma Sampson MD Primary Care Provide r Reason for Visit * Reason Comments Pre-visit Planning (Unable to reach for PVP screening, LVM) Encounter Details Date Type Department Care Team ([facility] st Contact Info) Description 09/05/2024 Patient Outreach [facility] [address] [place] [address] Irma Sampson MD [address] [place] [address] Pre-visit Planning ((Unable to reach for PVP [...] Description 11/23/2024 2:00 PM EDT Office Visit [facility] [address] [place] [address] Delia Dunham, OD [address] [place] [address] documented as of this encounter Visit Diagnoses Not on filedocumented in this encounter Additional Health Concerns Assessment Noted Time PHQ-9 Depression Total Score: 9 08/31/19 24 9:18 AM EST documented as of this encounter Care Teams Vp Of Technology Relationship Specialty Start Date End Date Irma Sampson MD [address] [place] [address] PCP - General Internal Medicine 08/11/23 documented as of this encounter
--- OUTSIDE RECORDS SUMMARY | 2024-09-26 13:03 | XMS_ITS | Clinical Summary ---
Author Organization [employer] Address [address] [facility] 7t [place] [address] Care Team Providers Care Deputy Juvenile Officer Name Role Phone Irma Sampson MD Primary [...] day. 30 tablet 11 09/17/19 25 Active nitrofurantoin , macrocrystal-m onohydrate, (Macrobid) 100 MG capsuleIndicat ions:UTI symptoms Take 1 capsule (100 mg) by mouth 2 times daily for 5 days. 10 capsule 09/26/19 25 2024 Active multivitamin () 27-0.8 MG tabletIndicati [...] be contacted with results Vaginal discharge 12/02/2023 Assessment & Plan (09/17/2024 4:41 PM EST): Patient is asymptomatic today. Return to clinic as needed vaginal discharge. Check STI testing today for planning purposes. Moderate asthma 12/02/2023 Assessment & Plan (12/02/2023 [...] PRN Family planning 09/26/2023 Assessment & Plan (09/17/2024 4:40 PM EST): Patient desires , we discussed having intercourse 3 days prior and 3 days after ovulation. We went over menstrual cycle calendar. Start vitamins. Ordered STI testing. Advised to avoid alcohol, recreational substances and smoking. FU with PCP. Assessment & Plan (09/26/2023 4:22 PM EST): Counseling done vitamins prescribed Benign intracranial hypertension 12/22/2022 Failed hearing screening 12/22/2022 Knee pain 12/22/2022 Obesity 12/22/2022 Seasonal allergies 12/22/2022 Vitamin D deficiency 12/22/2022 Hypermetropia 04/28/2018 Lactose intolerance 03/07/2018 Depressive disorder 04/14/2017 Posttraumatic stress disorder 04/14/2017 Encounters Date Type Department Care Team Description 09/26/2024 10:00 AM EST Office Visit [facility] [address] [place] [phone] So Veliz FNP Vaginal discharge (Primary Dx); UTI symptoms 09/26/2024 Travel 09/17/2024 1:30 PM EST Office Visit [facility] [address] [place] [address] Felicia Cazares MD Encounter for preventive health examination (Primary Dx); Family planning; Patient desires ; Vaginal discharge; Encounter for immunization 09/17/2024 Travel 09/05/2024 Patient Outreach [facility] [address] [place] [address] Irma Sampson MD Pre-visit Planning ((Unable to reach for PVP screening, LVM)) from Last 3 Months Immunizations Name Administration [...] Sign Reading Time Taken Comments Blood Pressure 150/75 09/26/2024 9:30 AM EST Pulse 87 09/26/2024 9:30 AM EST Temperature 36.2 ??C (97.1 ??F) 09/26/2024 9:30 AM ES T Respiratory Rate 16 09/26/2024 9:30 AM EST Oxygen Saturation 99% 09/26/2024 9:30 AM EST Inhaled Oxygen Concentration - - Weight 133 kg (293 lb 9.6 oz) 09/26/2024 9:30 AM EST Height 175.3 cm (5' 9 ) 09/26/2024 9:30 AM EST Body Mass Index 43.36 09/26/2024 9:30 AM EST Plan of Treatment Upcoming Encounters Date Type Department Care Team (Late st Contact Info) Description 11/23/2024 2:00 PM EDT Office Visit [facility] [address] [place] [address] RolyDelia, OD [address] [place] [address] Health Maintenance Due Date Last Done Comments Pneumococcal Vaccine: Pediatrics (0 to 5 Years) and At-Risk Patients (6 to 49) Years) (1 of 1 - PPSV23) 2008 01/29/2003, 2002, 2002 Alcohol/Substance Use Screening 2014 Pap Smear 2023 Depression Monitoring (PHQ-9) 02/29/2024 08/31/2023, 08/31/2023 Depression Screening 08/31/2024 08/31/2023, 08/31/19 24 SDOH Screening 08/31/2024 08/31/2023 Chlamydia and Gonorrhea Screening 12/01/2024 12/02/2023, 08/25/2023, 10/15/2022, Additional history exists Lipid Panel 04/08/2025 04/08/2020 Family Planning (PISQ) 09/26/2025 09/26/2024 Tobacco Screening 09/26/2025 09/26/2024 DTaP/Tdap/Td Vaccines (9 - Td or Tdap) [...] 08/23/2013 Hepatitis A Vaccines Completed 04/28/2018, 04/14/20 17 Meningococcal Vaccine Completed 08/28/2018, 014 COVID-19 Vaccine Completed 09/17/2024, , 01/01/2021, Additional history exists HIV Screening Completed 09/17/2024 Hepatitis C Screening Completed 09/17/2024 Influenza Vaccine Completed 09/17/2024, , 05/31/2023, Additional history exists RSV under 20 months Aged Out No longe r eligible based on patient's age to complete this topic Rotavirus Vaccines Aged Out No longer eligible based on patient's age to complete this topic Procedures Procedure Name Priority Date/Time Associated Diagnosis Comments POCT WET MOUNT/KOSTA Routine 09/26/2024 12 :05 PM EST Vaginal discharge POCT URINALYSIS DIPSTICK Routine 09/26/2024 9:40 AM EST UTI symptoms MEASLES, MUMPS, AND RUBELLA (MMR) AB (IGG) PANEL, IMMUNE STATUS Routine 09/17/2024 2:22 PM EST Encounter for preventive health examination Patient desires T-SPOT(R).TB Routine 09/17/2024 2:22 PM EST Encounter for preventive health examination Patient desires SYPHILIS SCREEN Routine 09/17/2024 2:22 PM EST Encounter for preventive health examination HEPATITIS PANEL, GENERAL Routine 09/17/2024 2:22 PM EST Encounter for preventive health examination HIV 1/2 ANTIGEN/ANTIBODY, FOURTH GENERATION W/RFL Routine 09/17/2024 2:22 PM EST Encounter for preventive health examination Patient desires CHLAMYDIA/N. GONORRHOEAE RNA, TMA, UROGENITAL Routine 12/02/2023 9:27 AM EDT Vaginal discharge LIPID PANEL, STANDARD Routine 04/08/2020 8:35 AM EDT from Last 3 Months or Most Recently Relevant to Health Maintenance Results * POCT Wet Mount/KOSTA (09/26/2024 12:05 PM EST) KOSTA Prep Negative Comment:PH 4.5, negative clu e, neg whiff, neg yeast, neg trich, neg wbc Vaginal Fluid Vaginal structure / Unknown 09/26/2024 12:05 PM EST Result [facility] POINT OF CARE TEST ENTER/EDIT ORDERABLES Final Result * (ABNORMAL) POCT Urinalysis (09/26/2024 9:40 AM EST) Color, UA Yellow Clarity, UA Clear Glucose, UA Negative Bilirubin, UA Negative Ketones, UA Negative Spec Grav, UA 1.025 Blood, UA Positive(A) Negative, None Detected Comment:moderate pH, UA 7.0 Protein, UA Many Comment:30 mg/dl Urobilinogen, UA 0.2 Leukocytes, UA Negative Negative, Rare, Trace Nitrite, UA Negative Negative, None Detected Appearance, UA clear QC Media Lot # [id number] Lot# Expiration Date Urine 09/26/2024 9:40 AM EST Result [facility] POINT OF CARE TEST ENTER/EDIT ORDERABLES Final Result * Syphilis Screen (09/17/2024 2:22 PM EST) Pathologist [facility] Syphilis Screen Nonreactive Nonreactive [facility] Blood 09/17/2024 2:22 PM EST 09/17/2024 4:00 PM EST Felicia Cazares MD LAB BLOOD ORDERABLES Fin al Result [facility] [address] [place] [address] [phone] * T-SPOT??.TB (09/17/2024 2:22 PM EST) T Spot TB Negative Negative [facility] Comment:A negative test resu lt does not exclude the possibilityof exposure to or infection with Mycobacteriumtuberculosis (M. tuberculosis). Patients with recentexposure to TB infected individuals exhibiting anegative T-SPOT.TB result should be considered forretesting within 6 weeks or if other relevant clinicalsymptoms indicate. Results from T-SPOT.TB testing mustbe used in conjunction with each individual'sepidemiological history, current medical status,and results of other diagnostic evaluations.The T-SPOT.TB test is qualitative and results arereported as positive, borderline, or negative, giventhat the test controls perform as expected. In linewith the Centers for Disease Control and Prevention's2010 recommendation to report quantitative measurementsalongside the qualitative result, the laboratoryprovides spot counts for informational purposes only.The T-SPOT.TB test should not be interpreted as aquantitative test. TS PANEL A 1 [facility] TS PANEL B 0 [facility] Negative Control Passed [facility] Positive Control Passed [facility] Comment:For additional infor mation, please refer tohttp://education.[employer]/faq/TLL082(This link is being provided for informational/educational purposes only.)THIS TEST WAS PERFORMED AT:[id number] [place] [phone] ARELLANO MD,PHD 09/17/2024 2:22 PM EST 09/17/2024 4:00 PM EST us Felicia Cazares MD LAB BLOOD ORDERABLES Fin al Result [facility] [address] [place] [phone] * Measles, Mumps, and Rubella (MMR) Antibodies??(IgG) Panel, Immune Status (09/17/2024 2:22 PM EST) [facility] Mumps Virus IgG Antibody 63.10 AU/mL [facility] Comment:AU/mL Interpretation ------- <9.00 Not consistent with immunity9.00-10.99 Equivocal>10.99 Consistent with immunityThe presence of mumps IgG antibody suggests immunizationor past or current infection with mumps virus. Rubella IgG Antibody 3.57 Index [facility] Comment:Index Interpretation ----- <0.90 Not consistent with immunity 0.90-0.99 Equivocal > or = 1.00 Consistent with immunityThe presence of rubella IgG antibody suggestsimmunization or past or current infection withrubella virus.THIS TEST WAS PERFORMED AT:[facility] [place] [phone] MCKEON MD Rubeola IgG (Measles) >300.00 AU/mL [facility] Comment:AU/mL Interpretation ----- <13.50 Not consistent with xovdinbb71.50-16.49 Equivocal>16.49 Consistent with immunityThe presence of measles IgG suggests immunization orpast or current infection with measles virus.For additional information, please refer tohttp://education.[employer]/faq/BGX612(This link is being provided for informational/educational purposes only.) Blood Venous blood specimen / Unknown 09/17/2024 2:22 PM EST 09/17/2024 4:00 PM EST us Felicia Cazares MD LAB BLOOD ORDERABLES Fin al Result [facility] [address] [place] [phone] * Hepatitis Panel, General (09/17/2024 2:22 PM EST) Hepatitis A IgM Nonreactive Nonreactive [facility] Comment:IgM antibodies to GOLDSTEIN V not detected; does not exclude earlyacute or recovered HAV infection. ~Hepatitis B Surface Antibody NONREACTIVE Nonreactive [facility] Comment:Nonreactive: < 8.00 mIU/mL Hepatitis B Core Antibody Nonreactive Nonreactive [facility] Hepatitis C Antibody Nonreactive Nonreactive [facility] Comment:Antibodies to HCV no t detected; does not exclude early acuteHCV infection. Hepatitis B Surface Ag Negative Negative [facility] Blood 09/17/2024 2:22 PM EST 09/17/2024 4:00 PM EST Felicia Cazares MD LAB BLOOD ORDERABLES Fin al Result Performing Organization Address [facility]/ZIP Co de Phone Number [facility] [address] [place] [phone] * HIV-1/2 Antigen and Antibodies, Fourth Generation, with Reflexes (09/17/2024 2:22 PM EST) [facility] HIV AB/AG Nonreactive Nonreactive [facility] Comment:HIV-1 p24 Ag and/or HIV-1/HIV-2 Ab not detected.A test result that is nonreactive does not exclude thepossibility of exposure to or infection with HIV-1 and/orHIV-2. Nonreactive results in this assay for individualswith prior exposure to HIV-1 and/or HIV-2 may be due toantigen and antibody levels that are below the limit ofdetection of this assay.The Dumbstruck HIV Ag/Ab Combo assay result andsupplemental assay results should be interpreted inconjunction with the patient's clinical presentation,history and other laboratory results. If the results areinconsistent with clinical evidence, additional testing issuggested to confirm the result. Blood Venous blood specimen / Unknown 09/17/2024 2:22 PM EST 09/17/2024 4:00 PM EST Felicia Cazares MD LAB BLOOD ORDERABLES Fin al Result Performing Organization Address [facility]/ZIP Co de Phone Number [facility] [address] [place] [phone] * Chlamydia/N. Gonorrhoeae RNA, TMA, Urogenitial (12/02/2023 9:27 AM EDT) CT PCR NOT DETECTED Not Detect. [facility] Comment:A not detected test result [...] psychologicalconsequences. NG PCR NOT DETECTED Not Detect. [facility] Comment:A not detected test result [...] AM EDT 12/02/2023 7:47 PM EDT Narrative [facility] - 12/03/2023 9:49 AM EDT Vaginal us Irma Valentin MD LAB MICROBIOLOGY - GE NERAL ORDERABLES Final Result [facility] [address] [place] [phone] * (ABNORMAL) LIPID PANEL, STANDARD (04/08/2020 8:35 AM EDT) Triglycerides 98(H) <90 mg/dL [facility] Chol/HDLC Ratio 3.0 <5.0 (calc) [facility] Cholesterol, Total 118 <170 mg/dL [facility] LDL Cholesterol 61 <110 mg/dL (calc) [facility] Comment: LDL-C is now calculated using the Salomon-Orlando ?? calculation, which is a validated novel method providing ?? better accuracy than the Friedewald equation in the ?? estimation of LDL-C. ?? Salomon KAHN et al. [place]. 2013;310(19): 8337-0508 ?? (http://Acumen/faq/DFJ356) HDL Cholesterol 39(L) >45 mg/dL [facility] LDL Cholesterol 61 <110 mg/dL (calc) [facility] Comment: LDL-C is now calculated using the Salomon-Orlando ?? calculation, which is a validated novel method providing ?? better accuracy than the Friedewald equation in the ?? estimation of LDL-C. ?? Salomon KAHN et al. [place]. 2013;310(19): 2559-3206 ?? (http://Acumen/faq/QMG373) Cholesterol, Total 118 <170 mg/dL [facility] [...] ?? Salomon SS et al. [place]. 2013;310(19): 9387-6458 ?? (http://education.[employer]/faq/JSK550) HDL Cholesterol 39(L) >45 mg/dL [facility] Chol/HDLC Ratio 3.0 <5.0 (calc) [facility] Cholesterol, Total 118 <170 mg/dL [...] ?? option. Triglycerides 98(H) <90 mg/dL [facility] 04/08/2020 8:35 AM EDT Jenn Nieto MD LAB BLOOD ORDERABLES Final Result Performing Organization Address City/State/[facility] Co de Phone Number [facility] [address] from Last 3 Months or Most Recently Relevant to Health Maintenance Insurance [facility] , [address] [place] [address] Care Teams Deputy Juvenile Officer Relationship Specialty Start Date End Date Irma Sampson MD [address] [place] [phone] PCP - General Internal Medicine 08/11/23
--- OUTSIDE RECORDS SUMMARY | 2024-09-26 13:03 | XMS_ITS | Encounter Summary ---
Author Organization [employer] Address [address] [facility] [facility] [address] [facility] [address] [place] [address] Care Team Providers Care Training And Development Rep Name Role Phone Irma Sampson MD Primary [...] Description 11/23/2024 2:00 PM EDT Office Visit [facility] [address] [place] [address] Delia Dunham, OD [address] [place] [address] documented as of this encounter Visit Diagnoses Not on filedocumented in this encounter Additional Health Concerns Assessment Noted Time PHQ-9 Depression Total Score: 9 08/31/19 24 9:18 AM EST documented as of this encounter Care Teams Training And Development Rep Relationship Specialty Start Date End Date Irma Sampson MD [address] [place] [address] PCP - General Internal Medicine 08/11/23 documented as of this encounter
--- OUTSIDE RECORDS SUMMARY | 2024-09-26 13:03 | XMS_ITS | Patient Health Record ---
Author Organization [facility] Address [address] [place] [address] Care Team Providers Care Community Placement Worker Name Role Phone Irma Jimenez M.D. Primary Care Provider Yovanny Aguilar Jr Unavailable ALLERGIES Allergen (clinical drug ingredient) Drug/Non Drug Allergy documented on EMR Reaction Allergy Type Onset Date Status Penicillin Unknown Drug Allergy Active shrimp allergenic extract Shrimp (Diagnostic) Unknown Drug Allergy Active RESULTS Component Value Reference Range Notes Ur Preg Test Reviewed date:01/04/2024 07:02:20 AM Interpretation: Performing Lab:[facility], [address] [place] [phone] Notes/Report: Urine NEGATIVE NEGATIVE This test was developed to detect early . False negative results may occur after the 5th - 7th week of when using this test method. If clinically indicated, consider a serum hCG. Pathology Reviewed date:01/19/2024 10:56:36 AM Interpretation: Performing Lab:[facility], [address] [place] [phone] Notes/Report: REASON FOR REFERRAL Referring Provider First Name Irma Referring Provider Last Name Barbara Referred Organization [facility] Referred Provider Yovanny Alexander Jr Referred Address [address] [facility],[address],[place], [place],[address], Referred Provider Specialty Gastroentero logy General Notes Carmen Tellez 024 09:07:12 AM EDT > [facility] with Dr. Alexander on [...] Notes Problem Chronic GERD (K21.9) Active confirmed [id number] Problem Gastroesophageal reflux disease without esophagitis (K21.9) Active confirmed Gastroesophagea l reflux disease without esophagitis ([id number]) VITAL SIGNS Temperature 97.5 degrees Fahrenheit 12/19/2023 Blood pressure diastolic 00 mm Hg 12/19/2023 Height 5 ft 9 in in 12/19/2023 Blood pressure systolic 000 mm Hg 12/19/2023 Weight 303 lb 4 oz lbs 12/19/2023 BMI 44.78 kg/m2 12/19/2023 Encounters Encounter Location Date Provider Diagnosis [facility] Outpatient [address] [place] [phone] 01/03/2024 Yovanny Alexander Jr Gastroesophageal reflux disease without esophagitis K21.9 [facility] [address] [place] [phone] 12/19/2023 Yovanny Alexander Jr Chronic GERD K21.9 [facility] [address] [place] [phone] 01/19/2024 Yovanny Alexander Jr [facility] [address] [place] [phone] 01/20/2024 Yovanny Alexander Jr ASSESSMENTS Encounter Date [...] Start Date Coverage End Date MEDICAID OF [facility] [address] ZAKIA LOAIZA [phone] [id number] AURORA MCKNIGHT Self - patient is the insured MEDICAL (GENERAL) HISTORY Medical History History ICD Code Elevated BMI Breast fibroadenoma Gastroesophageal reflux disease Surgical History Surgery Date(Month/Year) ACL repair 2019 Left breast fibroadenomas excision 2022
--- OUTSIDE RECORDS SUMMARY | 2024-09-26 13:03 | XMS_ITS ---
Author Organization [facility] Address [address] [place] [address] Care Team Providers Care Dynamometer Repairer Name Role Phone Irma Jimenez M.D. Primary Care Provider Yovanny Aguilar Jr [phone] Encounters Encounter Location Date Provider Diagnosis [facility] [address] [place] [address] 01/20/2024 Yovanny Alexander Jr PLAN OF TREATMENT No Information
--- OUTSIDE RECORDS SUMMARY | 2024-09-26 13:03 | XMS_ITS | Encounter Summary ---
Author Organization [employer] Address [address] [place] [address] Care Team Providers Care Pyridine Operator Name Role Phone Irma Sampson MD Primary Care Provide r Encounter Details Date Type Department Care Team ([facility] Contact Info) Description 09/26/2024 10:00 AM EST Office Visit [facility] [address] [place], [place] [phone] So Veliz FNP [address] [place], [place] [phone] Vaginal discharge (Primary Dx); UTI symptoms Social History Tobacco Use Types Packs/Day Years [...] Mass Index 43.36 09/26/2024 9:30 AM EST documented in this encounter Progress Notes * ALBA Livingston - 09/26/2024 10:00 AM EST Hawa Crowley is a 24 y.o. female who presents for a acute visit vaginal and urinary symptoms Complains of unusual discharge clear to yellowish x 3 days, malodorous but no itching. Denies hx ofSTI but treated for BV a while ago. Reports suprapubic pain Urinary symptoms: no burning, reports urgency x1 day with discomfort Menses: LMP 09/14. Removed Nexplanon in anticipation of getting Sexual active with same partner x 4 yrs. Denies any pain/bleeding with sex Lives with partner . No IPV Employment: community representative Patient Active Problem List Diagnosis Benign intracranial hypertension Depressive disorder Failed hearing screening Hypermetropia Knee pain Lactose intolerance Obesity Posttraumatic stress disorder Seasonal allergies Vitamin D deficiency GERD (gastroesophageal reflux disease) Mild intermittent asthma without complication Family planning UTI symptoms Vaginal discharge Moderate asthma Temporary high blood pressure Encounter for preventive health examination Patient desires Allergies Allergen Reactions Shellfish-Derived Products Anaphylaxis Penicillins Rash Current Outpatient Medications: albuterol 108 (90 Base) MCG/ACT inhaler, Inhale 2 puffs every 4 (four) hours if needed for wheezingor shortness of breath., Disp: 18 g, Rfl: 1 Blood Pressure Monitoring (Adult Blood Pressure Cuff Lg) kit, 1 each Once daily. Bring your machineor list of home measurements to your next appt., Disp: 1 kit, Rfl: 0 Mometasone Furoate (Asmanex HFA) 100 MCG/ACT aerosol, Inhale 2 puffs 2 times daily. (Patient not taking: Reported on 09/17/2024), Disp: 13 g, Rfl: 1 multivitamin () 27-0.8 MG tablet, Take 1 tablet by mouth Once per day., Disp: 30 tablet, Rfl: 11 Spacer/Aero-Holding Chambers (OptiChamber Mima) misc, 1 each every 4 (four) hours if needed (asthma)., Disp: 1 each, Rfl: 0 Review of Systems Constitutional: Negative for appetite change and fever. Respiratory: Negative for cough, chest tightness, shortness of breath and wheezing. Cardiovascular: Negative for chest pain and palpitations. Gastrointestinal: Negative for nausea and vomiting. Genitourinary: Positive for urgency and vaginal discharge. Negative for dyspareunia, dysuria, frequency, genital sores, hematuria, menstrual problem, pelvic pain, vaginal bleeding and vaginal pain. No abnormal pap, no abnormal bleeding, no breast pain, no breast mass, no nipple discharge Psychiatric/Behavioral: Negative for suicidal ideas. Vitals: 09/26/24 0930 BP: (!) 150/75 Pulse: 87 Resp: 16 Temp: 97.1 ??F (36.2 ??C) SpO2: 99% Physical Exam Constitutional: Appearance: She is obese. Cardiovascular: Rate and Rhythm: Normal rate. Pulses: Normal pulses. Pulmonary: Effort: Pulmonary effort is normal. Breath sounds: Normal breath sounds. Abdominal: Tenderness: There is abdominal tenderness. There is no right CVA tenderness or left CVA tenderness. Comments: Suprapubic tenderness Neurological: Mental Status: She is alert. Psychiatric: Mood and Affect: Mood normal. Behavior: Behavior normal. Problem List Items Addressed This Visit UTI symptoms Symptomatic of UTI, blood on dip will treat today Relevant Orders POCT Urinalysis (Completed) Chlamydia/N. Gonorrhoeae RNA, TMA, Vagina Culture, Urine, Routine Nitrofurantion BID Vaginal discharge - Primary Wet mount negative. Will send BV swab and G/C. Decline pelvic and self collected samples Relevant Orders Bacterial Vaginosis Panel POCT Wet Mount/KOSTA Will contact with results and advise to follow up with PCP for elevated BP Continue with prenatals as prescribed, advice f/up if not preg after a year of trying [facility] TELECOMMUNICATOR SUPERVISOR Attestation TELECOMMUNICATOR SUPERVISOR Resident Attestation: Patient was seen and evaluated by So WILLIS , in collaboration with Sandra Dunlap CNM who has reviewed my assessment and plan. I, Sandra Dunlap CNM , have reviewed the resident's note and agree with the assessment & plan of care as documented above. documented in this encounter Plan of Treatment Upcoming Encounters Date Type Department Care Team (Late st Contact Info) Description 11/23/2024 2:00 PM EDT Office Visit [facility] [address] [place] [address] Roly, Delia, OD [address] [place] [address] Scheduled Orders Name Type Priority Associated Diagnoses Orde r Schedule Bacterial Vaginosis Panel Microbiology Routine Vaginal discharge Ordered: 09/26/2024 Chlamydia/N. Gonorrhoeae RNA, TMA, Vagina Microbiology Routine UTI symptoms Ordered: 09/26/2024 Culture, Urine, Routine Microbiology Routine UTI symptoms Expected: 09/26/2024 (Approximate), Expires: 09/26/2025 documented as of this encounter Procedures Procedure Name Priority Date/Time Associated Diagnosis Comments POCT WET MOUNT/KOSTA Routine 09/26/2024 12 :05 PM EST Vaginal discharge POCT URINALYSIS DIPSTICK Routine 09/26/2024 9:40 AM EST UTI symptoms documented in this encounter Results * POCT Wet Mount/KOSTA (09/26/2024 12:05 PM EST) KOSTA Prep Negative Comment:PH 4.5, negative clu e, neg whiff, neg yeast, neg trich, neg wbc Vaginal Fluid Vaginal structure / Unknown 09/26/2024 12:05 PM EST [facility] POINT OF CARE TEST ENTER/EDIT ORDERABLES [...] Date Urine 09/26/2024 9:40 AM EST Result [facility] POINT OF CARE TEST ENTER/EDIT ORDERABLES Final Result documented in this encounter Visit Diagnoses Diagnosis Vaginal discharge- Primary Leukorrhea, not specified as infective UTI symptoms documented in this encounter Additional Health Concerns Assessment Noted Time PHQ-9 Depression Total Score: 9 08/31/19 24 9:18 AM EST documented as of this encounter Care Teams Pyridine Operator Relationship Specialty Start Date End Date Irma Sampson MD [address] [place] [phone] PCP - General Internal Medicine 08/11/23 documented as of this encounter
--- OUTSIDE RECORDS SUMMARY | 2024-09-26 13:03 | XMS_ITS | Encounter Summary ---
Author Organization [employer] Address [address] [facility] [address] [address] Care Team Providers Care Bread Racker Name Role Phone Taylor Cuellar Primary Care Provider [phone] Irma Sampson MD Primary Care Provide r Encounter Details Date Type Department Care Team (Late st Contact Info) Description 10/18/2022 Orders Only [facility] [address] [place] [address] Taylor Cuellar FNP [address] [place] [address] Bacterial vaginosis (Primary Dx) Social History Tobacco [...] Description 11/23/2024 2:00 PM EDT Office Visit [facility] [address] [place] [address] RolyDelia olivo, OD [address] [place] [address] documented as of this encounter Visit Diagnoses Diagnosis Bacterial vaginosis- Primary Unspecified vaginitis and vulvovaginitis documented in this encounter Care Teams Bread Racker Relationship Specialty Start Date End Date Taylor Cuellar FNP [address] [place] [address] PCP - General Family Medicine 07/12/22 08/10/23 Irma Sampson MD [address] [place] [phone] PCP - General Internal Medicine 08/11/23 documented as of this encounter
--- OUTSIDE RECORDS SUMMARY | 2024-09-26 13:03 | XMS_ITS | Encounter Summary ---
Author Organization [employer] Address [address] [facility] [address] [place] [address] Care Team Providers Care Business Continuity Manager Name Role Phone Irma Sampson MD Primary Care Provide r Encounter Details Date Type Department Care Team ([facility] st Contact Info) Description 09/17/2024 1:30 PM EST Office Visit [facility] [address] [place], [place] [phone] Felicia Cazares MD [address] [place], [place] [phone] Encounter for preventive health examination (Primary Dx); [...] Note - Jennifer Mota MA - 09/17/2024 4:40 PM EST Associated Problem(s): Family planning Patient desires , we discussed having intercourse 3 days prior and 3 days after ovulation.We went over menstrual cycle calendar. Start vitamins. Ordered STI testing. Advised to avoid alcohol, recreational substances and smoking. FU with PCP. * Assessment & Plan Note - Felicia Cazares MD - 09/17/2024 4:18 PM EST Associated Problem(s): Vaginal discharge Patient is asymptomatic today. Return to clinic as needed vaginal discharge. Check STI testing today for planning purposes. * Assessment & Plan Note - Jennifer [...] Description 11/23/2024 2:00 PM EDT Office Visit [facility] [address] [place] [address] RolyDelia olivo, OD [address] [place] [address] Scheduled Orders Name Type Priority Associated Diagnoses Orde r Schedule Chlamydia/N. Gonorrhoeae RNA, TMA, Urogenitial Microbiology Routine Vaginal discharge Ordered: 09/17/2024 documented as of this encounter Procedures Procedure Name Priority Date/Time Associated Diagnosis Comments SYPHILIS SCREEN Routine 09/17/2024 2:22 PM EST Encounter for preventive health examination T-SPOT(R).TB Routine 09/17/2024 2:22 PM EST Encounter for preventive health examination Patient desires MEASLES, MUMPS, AND RUBELLA (MMR) AB (IGG) PANEL, IMMUNE STATUS Routine 09/17/2024 2:22 PM EST Encounter for preventive health examination Patient desires HEPATITIS PANEL, GENERAL Routine 09/17/2024 2:22 PM EST Encounter for preventive health examination HIV 1/2 ANTIGEN/ANTIBODY, FOURTH GENERATION W/RFL Routine 09/17/2024 2:22 PM EST Encounter for preventive health examination Patient desires documented in this encounter Results * Measles, Mumps, and Rubella (MMR) Antibodies??(IgG) Panel, Immune Status (09/17/2024 2:22 PM EST) Mumps Virus IgG Antibody 63.10 AU/mL [facility] Comment:AU/mL Interpretation ------- <9.00 Not consistent with immunity9.00-10.99 Equivocal>10.99 Consistent with immunityThe presence of mumps IgG antibody suggests immunizationor past or current infection with mumps virus. Rubella IgG Antibody 3.57 Index [facility] Comment:Index Interpretation ----- <0.90 Not consistent with immunity 0.90-0.99 Equivocal > or = 1.00 Consistent with immunityThe presence of rubella IgG antibody suggestsimmunization or past or current infection withrubella virus.THIS TEST WAS PERFORMED AT:[facility] [place] [id number] MCKEON MD Rubeola IgG (Measles) >300.00 AU/mL [facility] Comment:AU/mL Interpretatio n----- <13.50 Not consistent with apgtovza50.50-16.49 Equivocal>16.49 Consistent with immunityThe presence of measles IgG suggests immunization orpast or current infection with measles virus.For additional information, please refer tohttp://[employer]/faq/ORC823(This link is being provided for informational/educational purposes only.) Blood Venous blood specimen / Unknown 09/17/2024 2:22 PM EST 09/17/2024 4:00 PM EST Felicia Cazares MD LAB BLOOD ORDERABLES Fin al Result [facility] [address] [place] [phone] * T-SPOT??.TB (09/17/2024 2:22 PM EST) [facility] T Spot TB Negative Negative [facility] Comment:A negative test resu lt [...] as aquantitative test. TS PANEL A 1 [facility] TS PANEL B 0 [facility] Negative Control Passed [facility] Positive Control Passed [facility] Comment:For additional infor mation, please refer tohttp://education.[employer]anc[employer]/faq/OBI143(This link is being provided for informational/educational purposes only.)THIS TEST WAS PERFORMED AT:[employer] [id number] [place] [address]XWOZORPHAVEN ARELLANO MD,PHD 09/17/2024 2:22 PM EST 09/17/2024 4:00 PM EST Felicia Cazares MD LAB BLOOD ORDERABLES Fin al Result Performing Organization Address [facility] de Phone Number [facility] [address] [place] [phone] * Syphilis Screen (09/17/2024 2:22 PM EST) Syphilis Screen Nonreactive Nonreactive [facility] Blood 09/17/2024 2:22 PM EST 09/17/2024 4:00 PM EST Felicia Cazares MD LAB BLOOD ORDERABLES Fin al Result Performing Organization Address [facility] Phone Number [facility] [address] [place] [phone] * Hepatitis Panel, General (09/17/2024 2:22 PM EST) Hepatitis A IgM Nonreactive Nonreactive [facility] Comment:IgM antibodies to GOLDSTEIN V not detected; does not exclude earlyacute or recovered HAV infection. ~Hepatitis B Surface Antibody NONREACTIVE Nonreactive [facility] Comment:Nonreactive: < 8.00 mIU/mL Hepatitis B Core Antibody Nonreactive Nonreactive [facility] Hepatitis C Antibody Nonreactive Nonreactive [facility] Comment:Antibodies to HCV no t detected; does not exclude early acuteHCV infection. Hepatitis B Surface Ag Negative Negative [facility] Blood 09/17/2024 2:22 PM EST 09/17/2024 4:00 PM EST Felicia Cazares MD LAB BLOOD ORDERABLES Fin al Result Performing Organization Address [facility] Phone Number [facility] [address] [place] [phone] * HIV-1/2 Antigen and Antibodies, Fourth Generation, with Reflexes (09/17/2024 2:22 PM EST) HIV AB/AG Nonreactive Nonreactive [facility] Comment:HIV-1 p24 Ag and/or HIV-1/HIV-2 Ab not detected.A test result that is nonreactive does not exclude thepossibility of exposure to or infection with HIV-1 and/orHIV-2. Nonreactive results in this assay for individualswith prior exposure to HIV-1 and/or HIV-2 may be due toantigen and antibody levels that are below the limit ofdetection of this assay.The Mediam[employer] HIV Ag/Ab Combo assay result andsupplemental assay results should be interpreted inconjunction with the patient's clinical presentation,history and other laboratory results. If the results areinconsistent with clinical evidence, additional testing issuggested to confirm the result. Blood Venous blood specimen / Unknown 09/17/2024 2:22 PM EST 09/17/2024 4:00 PM EST us Felicia Cazares MD LAB BLOOD ORDERABLES Fin al Result [facility] [address] [place] [phone] documented in this encounter Visit Diagnoses Diagnosis Encounter for preventive health examination- Primary Family planning Other general counseling and advice for contraceptive management Patient desires Vaginal discharge Leukorrhea, not specified as infective Encounter for immunization documented in this encounter Additional Health Concerns Assessment Noted Time PHQ-9 Depression Total Score: 9 08/31/19 24 9:18 AM EST documented as of this encounter Care Teams Business Continuity Manager Relationship Specialty Start Date End Date Irma Sampson MD [address] [place] [address] PCP - General Internal Medicine 08/11/23 documented as of this encounter
--- OUTSIDE RECORDS SUMMARY | 2024-09-26 13:03 | XMS_ITS | Encounter Summary ---
Author Organization [employer] Address [address] [place] [address] Care Team Providers Care Intermission Coordinator Name Role Phone Irma Sampson MD Primary Care Provide r Encounter Details Date Type Department Care Team (Latest Contact Info) Description 09/26/2024 Travel Social History Tobacco Use Types Packs/Day [...] Description 11/23/2024 2:00 PM EDT Office Visit [facility] [address] [place] [address] Delia Dunham, OD [address] [place] [address] documented as of this encounter Visit Diagnoses Not on filedocumented in this encounter Additional Health Concerns Assessment Noted Time PHQ-9 Depression Total Score: 9 08/31/19 24 9:18 AM EST documented as of this encounter Care Teams Intermission Coordinator Relationship Specialty Start Date End Date Irma Sampson MD [address] [place] [address] PCP - General Internal Medicine 08/11/23 documented as of this encounter
[2024-09-26 15:25] LABS: CT PCR NOT DETECTED (Not Detect.); NG PCR NOT DETECTED (Not Detect.)
[2024-09-27 13:31] LABS: Bacterial Vaginosis PCR NEGATIVE (Negative); Candida Group PCR NOT DETECTED (Not Detect); Candida glab krusei PCR NOT DETECTED (Not Detect); Trichomonas vaginalis PCR NOT DETECTED (Not Detect)
== END 2024-09-26 11:09 | disposition home or self-care (01) ==
LOC: HO.HHCL 11:08
PROVIDERS: Visit Provider Nurse Practitioner Family
DX: N89.8 Other specified noninflammatory disorders of vagina (principal); R39.9 Unspecified symptoms and signs involving the genitourinary system
CPT/HCPCS: 81515; 87086; 87491; 87591

== ENCOUNTER 2025-04-08 15:39 | Outpatient (REF) | payer OTHER, SELFPAY ==
--- OUTSIDE RECORDS SUMMARY | 2024-01-03 09:10 | XMS_ITS ---
Author Organization [facility] Address [address] [place] [address] Care Team Providers Care Camera Person Name Role Phone Barbara Parker, Irma Primary Care Provider Yovanny Aguilar Jr [phone] REASON FOR VISIT gerd Problems Problem Type SNOMED Code ICD Code Onset Dates Problem Status W/U Status Risk Notes Problem Gastroesophageal reflux disease without esophagitis (K21.9) Active confirmed Encounters Encounter Location Date Provider Diagnosis [facility] [place] [address] [place] [phone] 01/03/2024 Yovanny Alexander Jr Gastroesophageal reflux disease without esophagitis K21.9 Assessments Encounter Date Diagnosis (ICD Code) Assessment Notes Treatment Notes Treatment Clinical Notes Section Notes 01/03/2024 Gastroesophageal reflux disease without esophagitis (ICD-10 - K21.9) Plan Of Treatment No Information Progress Notes * AURORA MCKNIGHTDOB:2000 ( 24 yo F)Acc No.[id number]:01/03/2024 EGD/MAC Patient: AURORA MCCARTHY Provider: Des Alexander MD :2000 A ge:23 Y S ex:Female Date:01/03/2024 Address:[address] [place], [place] [address] [address], [place], [place] Pcp:Irma Jimenez M.D. Subjective: * Chief Complaints: * 1 . Gerd. * Medical History: Objective: * Vitals: Assessment: * Assessment: 1. G astroesophageal reflux disease without esophagitis - K21.9 (Primary) Plan: * Treatment: * Procedure Codes: 4 3239 UPPER GI ENDOSCOPY, BIOPSY * * The named appointment provid er may or may not be the originator of this progress note, and it is not deemed complete until electronically signed by the appointment provider. Sign off status: Pending * Provider: Des Alexander MD Date: 0 01/03/2024 Generated for Reema thomas/Derek/Lonnyitting on: 0 04/08/2025 08:10 AM EDT
--- OUTSIDE RECORDS SUMMARY | 2025-04-08 17:41 | XMS_ITS | Patient Health Record ---
Author Organization [facility] Address [address] [place] [address] Care Team Providers Care High Rigger Name Role Phone Irma Jimenez M.D. Primary Care Provider Yovanny Aguilar Jr Unavailable Allergies Allergen (clinical drug ingredient) Drug/Non Drug Allergy documented on EMR Reaction Allergy Type Onset Date Status Penicillin Unknown Drug Allergy Active shrimp allergenic extract Shrimp (Diagnostic) Unknown Drug Allergy Active Reason For Referral No Information Medications Medication SIG (Take, Route, Frequency, Duration) Notes Start Date End Date Status NexIUM 40 MG 1 capsule Orally Onc e a day for 30 day(s) 12/19/2023 Active Immunizations Vaccine Route Administration Date Status Comme nts Influenza Unknown 05/31/2023 Administered Social History Tobacco Use: Social History Observation Description Date Details (start date - stop date) Never Smoker NA - NA Tobacco Use/Smoking Question Answer Notes Patient is a nonsmoker Alcohol Screen Question Answer Notes Did you have a drink containing alcohol in the p ast year? No Points 0 Interpretation Negative Problems Problem Type SNOMED Code ICD Code Onset Dates Problem Status W/U Status Risk Notes Problem Gastroesophageal reflux disease without esophagitis (K21.9) Active confirmed Problem [id number] Chronic GERD (K21.9) Active confirmed Plan Of Treatment Future Test Test Name Order Date UPPER GI ENDOSCOPY 12/19/2023 Insurance Providers Payer Name Payer Address Payer Phone Subscriber Number Group Number Insured Name Patient Relationship to Insured Coverage Start Date Coverage End Date [facility] [address] [place] [phone] [id number] AURORA MCKNIGHT Self - patient is the insured Medical (General) History Medical History History ICD Code Elevated BMI Breast fibroadenoma Gastroesophageal reflux disease Surgical History Surgery Date(Month/Year) ACL repair 2019 Left breast fibroadenomas excision 2022
== END 2025-04-08 15:40 | disposition home or self-care (01) ==
LOC: HO.HHCL 15:39
PROVIDERS: PCP Internal Medicine; Visit Provider Internal Medicine
DX: Z32.01 Encounter for pregnancy test, result positive (principal)
CPT/HCPCS: 36415; 84702